=== PATIENT | female | born 1985 | race American Indian/Alaskan Native ===

== ENCOUNTER 2018-08-24 11:12 | Emergency (ER) | payer MEDICAID, OTHER ==
[~2018-08-24] VITALS: Ht 157.5 cm; Wt 88.9 kg
--- OUTSIDE RECORDS SUMMARY | ~2018-08-24 | XMS | Encounter Summary ---
Demographics + + + | Address | [address] | | | [place] [address] | + + + | Home Phone | | + + + | Preferred Language | Unknown | + + + | Marital Status | | + + + | Oriental Orthodox Affiliation | SPI | + + + | Race | White | + + + | Ethnic Group | Not or | + + + Author + + + | Author | [facility] | + + + | Organization | [facility] | + + + | Address | [...] Team Providers + +------+ + | Care Loss Control Consultant Name | Role | Phone | + +------+ + | Saniya Sapp | PCP | + | + +------+ + Encounter Details +--------+ + + + + | Date | Type | Department | Care Team | Description | +--------+ + + + + | 06/21/ | Pharmacy | [facility] | | | | 2017 | Visit | & Healing Pharmacy | | | | | | [address] | | | | | | [place], [place] | | | | | | [address] | | | | | | [phone] | | | +--------+ + + + + Social History + + + +--------+ + [...] on file | | + + + as of this encounter Plan of Treatment Not on fileas of this encounter Visit Diagnoses Not on filein this encounter"
--- OUTSIDE RECORDS SUMMARY | ~2018-08-24 | XMS | Encounter Summary ---
Demographics + + + | Address | [address] | | | [place] [address] | + + + | Home Phone | | + + + | Preferred Language | Unknown | + + + | Marital Status | | + + + | Amish Affiliation | SPI | + + + | Race | White | + + + | Ethnic Group | Not or | + + + Author + + + | Author | [facility] | + + + | Organization | [facility] | + + + | Address | Unknown | + + + | Phone | Unavailable | + + + Support + + +---------+ + | Name | Relationship | Address | Phone | + + +---------+ + | Keesha oFx | ECON | Unknown | | + + +---------+ + | Gabo Olmedo | ECON | Unknown | | + + +---------+ + Care Team Providers + +------+ + | Care Client Integration Manager Name | Role | Phone | + +------+ + | Saniya Sapp | PCP | + | + +------+ + Reason for Visit Other (Routine) + +--------+ + + + [...] | | | | | | CH[facility] [place] | | | | | | | [facility] | | | | | | | and Healing, | | | | | | | Floor | | | | | | | [place], [place] | | | | | | | [address] | | | | | | | Phone: | | | | | | | [phone] | | | | | | | Fax: | | | | | | | [phone] | + +--------+ + + + + Encounter Details +--------+ + + + + | Date | Type | Department | Care Team | Description | +--------+ + + + + | 05/28/ | Telephone-S | [place] | [facility] | | | 2018 | cheduled | Fertility | [address] | | | | | Consultants at [facility] | [place] [address] | | | | | [address] | | | | | | Mailcode: CH10F | | | | | | [facility] | | | | | | and Healing, | | | | | | Floor [facility] [place] | | | | | | [address] | | | | | | [phone] | | | +--------+ + + + [...] section. | + +--------+ + + + in this encounter Results LAB REPORTS (05/28/2018) + + + | Narrative | Performed At | + + + | | | + + + in this encounter Visit Diagnoses Not on filein this encounter"
--- OUTSIDE RECORDS SUMMARY | ~2018-08-24 | XMS | Encounter Summary ---
Demographics + + + | Address | [address] | | | [place] [address] | + + + | Home Phone | | + + + | Preferred Language | Unknown | + + + | Marital Status | | + + + | Caodaism Affiliation | SPI | + + + | Race | White | + + + | Ethnic Group | Not or | + + + Author + + + | Author | [facility] | + + + | Organization | [facility] | + + + | Address [...] Team Providers + +------+ + | Care Shampooer Name | Role | Phone | + +------+ + | Saniya Sapp | PCP | | + +------+ + Encounter Details +--------+ + + + + | Date | Type | Department | Care Team | Description | +--------+ + + + + | 08/01/ | MyCcodyt | [place] | Fariba Wilson MD | RE: Maternal DNA | | 2018 | Encounter | Fertility | [address] | proof | | | | Consultants at [facility] | Julee Reza [place], | | | | | [address] | [place] [address] | | | | | Mailcode: CH10F | [phone] | | | | | [facility] | | | | | | and | | | | | | Floor [place], [place] | | | | | | [address] | | | | | | [phone] | | | +--------+ + + + [...]
--- OUTSIDE RECORDS SUMMARY | ~2018-08-24 | XMS | Encounter Summary ---
Demographics + + + | Address | [address] | | | [place] [address] | + + + | Home Phone | | + + + | Preferred Language | Unknown | + + + | Marital Status | | + + + | Yarsani Affiliation | SPI | + + + | Race | White | + + + | Ethnic Group | Not or | + + + Author + + + | Author | [facility] | + + + | Organization | [facility] | + + + | Address [...] Team Providers + +------+ + | Care Promotions Manager Name | Role | Phone | + +------+ + | Saniya Sapp | PCP | | + +------+ + Reason for Visit + + + | Reason | Comments | + + + | Telephone follow-up | | + + + Encounter Details +--------+ + + + + | Date | Type | Department | Care Team | Description | +--------+ + + + + | 05/31/ | Telephone | [place] | Fariba Wilson MD | Telephone follow-up | | 2018 | | Fertility | [address] | | | | | Consultants at [facility] | Julee Reza [place], | | | | | [address] | [place] [address] | | | | | Mailcode: 10 | [phone] | | | | | [facility] | | | | | | and | | | | | | [place], [place] | | | | | | [address] | | | | | | [phone] | | | +--------+ + + + [...] + in this encounter Results LAB REPORTS (05/31/2018) + + + | Narrative | Performed At | + + + | | | + + + HCG BETA QUANT, PLASMA (05/31/2018) + +-------+ + + | Component | [...] | | | + +---------+ + + in this encounter Visit Diagnoses + + | Diagnosis | + + | Flowsheet | + + | Encounter for assisted reproductive fertility procedure cycle | + +"
--- OUTSIDE RECORDS SUMMARY | ~2018-08-24 | XMS | Encounter Summary ---
Demographics + + + | Address | [address] | | | [place] [address] | + + + | Home Phone | | + + + | Preferred Language | Unknown | + + + | Marital Status | | + + + | Jainism Affiliation | SPI | + + + | Race | White | + + + | Ethnic Group | Not or | + + + Author + + + | Author | [facility] | + + + | Organization | [facility] | + + + | Address [...] Team Providers + +------+ + | Care Incident Commander Name | Role | Phone | + +------+ + | Saniya Sapp | PCP | + | + +------+ + Encounter Details +--------+ + + + + | Date | Type | Department | Care Team | Description | +--------+ + + + + | 06/29/ | Pharmacy | [facility] | | | | 2017 | Visit | & Healing Pharmacy | | | | | | [address] | | | | | | [place], [place] | | | | | | [address] | | | | | | [phone] | | | +--------+ + + + [...]
--- OUTSIDE RECORDS SUMMARY | ~2018-08-24 | XMS | Encounter Summary ---
Demographics + + + | Address | [address] | | | [place] [address] | + + + | Home Phone | | + + + | Preferred Language | Unknown | + + + | Marital Status | | + + + | Adventist Affiliation | SPI | + + + | Race | White | + + + | Ethnic Group | Not or | + + + Author + + + | Author | [facility] | + + + | Organization | [facility] | + + + | [...] Team Providers + +------+ + | Care Tire Wrapper Name | Role | Phone | + +------+ + | Saniya Sapp | PCP | + | + +------+ + Encounter Details +--------+ + + + + | Date | Type | Department | Care Team | Description | +--------+ + + + + | 06/18/ | Pharmacy | [facility] | | | | 2017 | Visit | & Healing Pharmacy | | | | | | [address] | | | | | | [place], [place] | | | | | | [address] | | | | | | [phone] | | | +--------+ + + + [...]
--- OUTSIDE RECORDS SUMMARY | ~2018-08-24 | XMS | Encounter Summary ---
Demographics + + + | Address | [address] | | | [place] [address] | + + + | Home Phone | | + + + | Preferred Language | Unknown | + + + | Marital Status | | + + + | Orthodoxy Affiliation | SPI | + + + | Race | White | + + + | Ethnic Group | Not or | + + + Author + + + | Author | [facility] | + + + | Organization | [facility] | + + + | Address [...] Team Providers + +------+ + | Care Community Coordinator For High School Name | Role | Phone | + +------+ + | Saniya Sapp | PCP | + | + +------+ + Encounter Details +--------+ + + + + | Date | Type | Department | Care Team | Description | +--------+ + + + + | 06/15/ | Pharmacy | [facility] | | | | 2017 | Visit | & Healing Pharmacy | | | | | | [address] | | | | | | [place], [place] | | | | | | [address] | | | | | | [phone] | | | +--------+ + + + [...]
--- OUTSIDE RECORDS SUMMARY | ~2018-08-24 | XMS | Clinical Summary ---
Demographics + + + | Address | [address] | | | [place] [address] | + + + | Home Phone | | + + + | Preferred Language | Unknown | + + + | Marital Status | | + + + | Hinduism Affiliation | SPI | + + + | Race | White | + + + | Ethnic Group | Not or | + + + Author + + + | Author | [facility] | + + + | Organization | [facility] | + + + | [...] Team Providers + +------+ + | Care Online Marketing Analyst Name | Role | Phone | + +------+ + | Saniya SappP | PP | | + +------+ + Source Comments RAEANN is fully live on both [facility] Ambulatory and [facility] InPatient.[facility] Allergies + + + + + [...] | | original. FLOW Renan Olmedo / [id number] | | Recurrent Loss Bloods Drawn Tubal [...] (Est | | Gestational Age): Date: Results: WELCOME HOSTESS | | Physician: Doctor letter dictated on: [...] | |Results: | | | | | |WELCOME HOSTESS Physician: | |Doctor letter dictated on: by: | | | |MEDICATION PLAN: | | | + + + + + | IVF screening checklist | 09/01/2016 | + + + + + | Overview: Formatting of this note may be different from the | | original.Pre - IVF Screening ChecklistName: Farrahanisha Fox | | [facility] INITIAL CONSULT DATE COMMENT/RESULT IVF | | [...] MALE: Ruben Olmedo "Gabo" [birth year] | | [id number] DATE COMMENTS/RESULT HIV Ab Screen 08/23/16 neg [...] Health consult needed if donor sperm/ 3rd republican, | | | | Reproductive Psychologist | | visit.-Mammogram for advance maternal age > 50 (controversial, | | offer between ages 40-50, [id number]). | |Hep C Surface Antibody 08/23/16 neg [...] Health consult needed if donor sperm/ 3rd republican, Reproductive Psychologist vi sit. | |-Mammogram for [...] | 06/21/ | Procedure | | Deven Deiwtt MD | Obstetric US Scan | | [...] | +--------+ + + + + | 05/24/ | Pharmacy | | | | | [...] | + + + + + | INFLUENZA VACCINE | | 12/27/2017, 10/13/2014, | | | (FLU SHOT) | 8 | 03/13/2014, Additional history | [...] | + +--------+ + + + | DC TRANSFER OF | Routin | 06/10/2018 | [...] + + from Last 3 Months Results [facility] OB ULTRASOUND (06/29/2018 7:03 AM)Only the most recent of 3 results within the time pe maria alejandra is included. + + + | Narrative [...] | | | + +--------+ +--------+-------+---------+ | PRODUCT MANAGER FIN[employer]CIAL [employer] MEDICAID | PRODUCT [employer]GER [employer]CIAL [employer] | xxxxxxxx | Medica | | | [...] | | | + +--------+ +--------+-------+---------+ | [facility] | | xxxxxxxxx | Agency | | | [...] | Self | [birth year] | Home: | [address] | | | al/Fam | | 1984 | [address] | [place] [address] | | | melvina | | | [address] | | + +--------+ +--------+ + + | FARRAH OLMEDO | Agency | Self | [birth year] | Home: | [address] | | | | | 1984 | +- | [place] [address] | | | | | | [address] | | + +--------+ +--------+ + + | FARRAH OLMEDO | [employer] | Self | [birth year] | Home: | [address] | | | Billin | | 1984 | [address] | [place] [address] | | | g Use | | | [address] | | | | Only | | | | | + +--------+ +--------+ + +
--- OUTSIDE RECORDS SUMMARY | ~2018-08-24 | XMS | Encounter Summary ---
Demographics + + + | Address | [address] | | | [place] [address] | + + + | Home Phone | | + + + | Preferred Language | Unknown | + + + | Marital Status | | + + + | Baptist Affiliation | SPI | + + + | Race | White | + + + | Ethnic Group | Not or | + + + Author + + + | Author | [facility] | + + + | Organization | [facility] | + + + | Address | [...] Team Providers + +------+ + | Care Carpentry Instructor Name | Role | Phone | + [...] | | | | | Consultants at [facility] | [address] [place], | | | | | [address] | [place] [address] | | | | | Mailcode: CH10 | [phone] | | | | | [facility] | | | | | | and [place], | | | | | | [place], [place] | | | | | | [address] | | | | | | [phone] | | | +--------+ + + + [...]
--- OUTSIDE RECORDS SUMMARY | ~2018-08-24 | XMS | Encounter Summary ---
Demographics + + + | Address | [address] | | | [place] [address] | + + + | Home Phone | | + + + | Preferred Language | Unknown | + + + | Marital Status | | + + + | Alevism Affiliation | SPI | + + + | Race | White | + + + | Ethnic Group | Not or | + + + Author + + + | Author | [facility] | + + + | Organization | [facility] | + + + | Address [...] Providers + +------+ + | Care Tire Repairer Name | Role | Phone | + +------+ + | Saniya Sapp | PCP | + | + +------+ + Encounter Details +--------+ + + + + | Date | Type | Department | Care Team | Description | +--------+ + + + + | 06/29/ | Hospital | Diagnostic Imaging | Fariba Wilson MD | | | 2018 | Encounter | Services [address] | | | | | [facility] | [facility], | | | | | [place], [place] | [place] [address] | | | | | [address] | [phone] | | | | | | | | +--------+ + [...] + + + as of this encounter Medications at Time of Discharge + + + +---------+ + + | Medication | Sig. | Disp. | Refills | Start | End Date | | | | | | Date | | + + + +---------+ + + | buPROPion XL 150 | Take 150 mg by mouth | | | | | | mg oral tablet | once daily in the | | | | | | extended release 24 | evening. | | | | | | hr | | | | | | + + + +---------+ + + | | Call with mens day | 1 | 1 | 04/09/20 | | | desogestrel-ethinyl | one. Take active | Package | | 18 | | | estradiol 0.15-0.03 | pills only starting | | | | | | mg oral tablet | on menses day one. | | | | | + + + +---------+ + + | diazePAM (VALIUM) | Take one tablet one | 1 | 0 | 04/17/20 | | | 10 mg oral | hour prior to | tablet | | 18 | | | tabletIndications: | procedure. | | | | | | anxiety | Indications: anxiety | | | | | + + + +---------+ + + | docusate sodium | Take 200 mg by mouth | | | | | | (DOK) 100 mg oral | once daily at | | | | | | capsule | bedtime. | | | | | + + + +---------+ + + | doxycycline | Take 1 tablet by | 14 | 0 | 04/17/20 | | | hyclate 100 mg oral | mouth every twelve | tablet | | 18 | | | tablet | hours. (Pharmacist | | | | | | | to substitute salt | | | | | | | form as needed). | | | | | | | Take for a total of | | | | | | | 7 days. | | | | | + + + +---------+ + + | folic acid 800 mcg | Take 800 mcg by | | | | | | oral tablet | mouth once daily in | | | | | | | the evening. | | | | | + + + +---------+ + + | ibuprofen 600 mg | Take 1 tablet by | 60 | 2 | 04/11/20 | | | oral tablet | mouth every six | tablet | | 18 | | | | hours as needed. | | | | | + + + +---------+ + + | Needle (Disp) 22 G | Use to inject | 20 each | PRN | 05/23/20 | | | 22 gauge x 1 11/28" | progesterone. | | | 18 | | | needle | | | | | | + + + +---------+ + + | pantoprazole 40 mg | Take 40 mg by mouth | | | | | | oral tablet,delayed | once daily in the | | | | | | release (DR/EC) | evening. | | | | | + + + +---------+ + + | progesterone 50 | Inject 2 mL into the | 40 mL | PRN | 06/15/20 | | | mg/mL intramuscular | muscle (IM) once | | | 18 | | | oilIndications: | daily. Indications: | | | | | | | | | | | | + + + +---------+ + + | Syringe with | Use to draw up | 20 | PRN | 05/23/20 | | | Needle (Disp) 3 mL | progesterone. | Syringe | | 18 | | | 18 x 1 11/28" syringe | | | | | | + + + +---------+ + + | venlafaxine XR 150 | Take 150 mg by mouth | | | | | | mg oral | once daily in the | | | | | | capsule,extended | evening. | | | | | | release 24hr | | | | | | + + + +---------+ + + as of this encounter Plan [...] +--------+ + + + in this encounter Visit Diagnoses Not on filein this encounter
--- OUTSIDE RECORDS SUMMARY | ~2018-08-24 | XMS | Encounter Summary ---
Demographics + + + | Address | [address] | | | [place] [address] | + + + | Home Phone | | + + + | Preferred Language | Unknown | + + + | Marital Status | | + + + | Mu-Ism Affiliation | SPI | + + + | Race | White | + + + | Ethnic Group | Not or | + + + Author + + + | Author | [facility] | + + + | Organization | [facility] | + + + | Address [...] Team Providers + +------+ + | Care Baler Name | Role | Phone | + [...] | | | | | | | [place], [place] | | | | | | | [address] | | | | | | | Phone: | | | | | | | [phone] | | | | | | | Fax: | | | | | | | [phone] | + +--------+ + + + + Encounter Details +--------+ + + + + | Date | Type | Department | Care Team | Description | +--------+ + + + + | 06/29/ | Procedure | [facility] | Fariba Wilson MD | Obstetric US Scan | | 2018 | | Fertility | [address] | | | | | Consultants at [facility] | [address] [place], | | | | | [address] | [place] [address] | | | | | Mailcode: CH10F | [phone] | | | | | [facility] | | | | | | and Healing, | | | | | | [place], [place] | | | | | | [address] | | | | | | [phone] | | | +--------+ + + + [...] age: 8w3d Yolk Sac: present 0.41 cm [place] Rump Length = 2.12 cm, gestational age: 8w5d Heart Beat: 172 bpm twin B: Approach: transvaginal Uterus: normal Gestational Sac: present Yolk Sac: present [place] Rump Length = 2.19 cm, gestational age: [...] Transition to OB care - referred to [facility]. I, Mariely Betancourt, am functioning [...]
--- OUTSIDE RECORDS SUMMARY | ~2018-08-24 | XMS | Encounter Summary ---
Demographics + + + | Address | [address] | | | [place] [address] | + + + | Home Phone | | + + + | Preferred Language | Unknown | + + + | Marital Status | | + + + | Spiritism Affiliation | SPI | + + + [...] Team Providers + +------+ + | Care Hydrographic Engineer Name | Role | Phone | + +------+ + | Saniya Sapp | PCP | + | + +------+ + Encounter Details +--------+ + + + + | Date | Type | Department | Care Team | Description | +--------+ + + + + | 06/20/ | Pharmacy | [facility] | | | | 2017 | Visit | & Healing Pharmacy | | | | | | [address] | | | | | | [place], [place] | | | | | | [address] | | | | | | [phone] | | | +--------+ + + + [...]
--- OUTSIDE RECORDS SUMMARY | ~2018-08-24 | XMS | Encounter Summary ---
Demographics + + + | Address | [address] | | | [place] [address] | + + + | Home Phone [...] Author + + + | Author | [facility] | + + + | Organization | [facility] | + + + | [...] Team Providers + +------+ + | Care Sales Representative Business Courses Name | Role | Phone | + +------+ + | Saniya Sapp | PCP | + | + +------+ + Encounter Details +--------+ + + + + | Date | Type | Department | Care Team | Description | +--------+ + + + + | 07/16/ | Documentati | [place] | Fariba Wilson MD | | | 2018 | on | Fertility | [address] | | | | | Consultants at [facility] | [address] [place], | | | | | [address] | [place] [address] | | | | | Mailcode: CH10 | [phone] | | | | | [facility] | | | | | | and [address], | | | | | | Floor [place], [place] | | | | | | [address] | | | | | | [phone] | | | +--------+ + + + [...]
--- OUTSIDE RECORDS SUMMARY | ~2018-08-24 | XMS | Encounter Summary ---
Demographics + + + | Address | [address] | | | [place] [address] | + + + | Home Phone | | + + + | Preferred Language | Unknown | + + + | Marital Status | | + + + | Episcopal Affiliation | SPI | + + + [...] Team Providers + +------+ + | Care Disk Recoater Name | Role | Phone | + +------+ + | Saniya Sapp | PCP | + | + +------+ + Encounter Details +--------+ + + + + | Date | Type | Department | Care Team | Description | +--------+ + + + + | 07/20/ | Pharmacy | [facility] | | | | 2017 | Visit | & Healing Pharmacy | | | | | | [address] | | | | | | [place], [place] | | | | | | [address] | | | | | | [phone] | | | +--------+ + + + [...]
--- OUTSIDE RECORDS SUMMARY | ~2018-08-24 | XMS | Encounter Summary ---
Demographics + + + | Address | [address] | | | [place] [address] | + + + | Home Phone | | + + + | Preferred Language | Unknown | + + + | Marital Status | | + + + | Rastafari Affiliation | SPI | + + + | Race | White | + + + | Ethnic Group | Not or | + + + Author + + + | Author | [facility] | + + + | Organization | [facility] | + + + | [...] Team Providers + +------+ + | Care Shop Tailor Apprentice Name | Role | Phone | + +------+ + | Saniya Sapp | PCP | + | + +------+ + Encounter Details +--------+ + + + + | Date | Type | Department | Care Team | Description | +--------+ + + + + | 07/31/ | Pharmacy | [facility] | | | | 2017 | Visit | & Healing Pharmacy | | | | | | [address] | | | | | | [place], [place] | | | | | | [address] | | | | | | [phone] | | | +--------+ + + + [...]
--- OUTSIDE RECORDS SUMMARY | ~2018-08-24 | XMS | Encounter Summary ---
Demographics + + + | Address | [address] | | | [place] [address] | + + + | Home Phone | | + + + | Preferred Language | Unknown | + + + | Marital Status | | + + + | Scientologist Affiliation | SPI | + + + | Race | White | + + + | Ethnic Group | Not or | + + + Author + + + | Author | [facility] | + + + | Organization | [facility] | + + + | Address [...] Team Providers + +------+ + | Care Lead Python Developer Name | Role | Phone | + +------+ + | Saniya Sapp | PCP | + | + +------+ + Encounter Details +--------+ + + + + | Date | Type | Department | Care Team | Description | +--------+ + + + + | 06/22/ | Pharmacy | [facility] | | | | 2017 | Visit | & [facility] | | | | | | [address] | | | | | | [place], [place] | | | | | | [address] | | | | | | [phone] | | | +--------+ + + + [...]
--- OUTSIDE RECORDS SUMMARY | ~2018-08-24 | XMS | Encounter Summary ---
Demographics + + + | Address | [address] | | | [place] [address] | + + + | Home Phone | | + + + | Preferred Language | Unknown | + + + | Marital Status | | + + + | Uatsdin Affiliation | SPI | + + + | Race | White | + + + | Ethnic Group | Not or | + + + Author + + + | Author | [facility] | + + + | Organization | [facility] | + + + | Address [...] Team Providers + +------+ + | Care Stockroom Coordinator Name | Role | Phone | + [...] | Encounter | Services [address] | [address] | | | | | [facility] | [place], [place] | | | | | Road [place], [place] | [address] | | | | | [address] | [phone] | | | | | | | [...]
--- OUTSIDE RECORDS SUMMARY | ~2018-08-24 | XMS | Encounter Summary ---
Demographics + + + | Address | [address] | | | [place] [address] | + + + | Home Phone [...] Team Providers + +------+ + | Care Outreach Educator Name | Role | Phone | + +------+ + | Saniya Sapp | PCP | + | + +------+ + Encounter Details +--------+ + + + + | Date | Type | Department | Care Team | Description | +--------+ + + + + | 05/24/ | Pharmacy | [facility] | | | | 2017 | Visit | & [facility] | | | | | | [address] | | | | | | [place], [place] | | | | | | [address] | | | | | | [phone] | | | +--------+ + + + [...]
--- OUTSIDE RECORDS SUMMARY | ~2018-08-24 | XMS | Encounter Summary ---
Demographics + + + | Address | [address] | | | [place] [address] | + + + | Home Phone | | + + + | Preferred Language | Unknown | + + + | Marital Status | | + + + | Spiritism Affiliation | SPI | + + + | Race | White | + + + | Ethnic Group | Not or | + + + Author + + + | Author | [facility] | + + + | Organization | [facility] | + + + | Address [...] Team Providers + +------+ + | Care Reflow Operator Name | Role | Phone | + +------+ + | Saniya Sapp | PCP | + | + +------+ + Encounter Details +--------+ + + + + | Date | Type | Department | Care Team | Description | +--------+ + + + + | 05/29/ | Telephone | [place] | Fariba Wilson MD | | | 2018 | | Fertility | [address] | | | | | Consultants at [facility] | Julee Reza [place], | | | | | [address] | [place] [address] | | | | | Mailcode: CH10F | [phone] | | | | | [facility] | | | | | | and , | | | | | | Floor [place], [place] | | | | | | [address] | | | | | | [phone] | | | +--------+ + + + [...]
--- OUTSIDE RECORDS SUMMARY | ~2018-08-24 | XMS | Encounter Summary ---
Demographics + + + | Address | [address] | | | [place] [address] | + + + | Home Phone | | + + + | Preferred Language | Unknown | + + + | Marital Status | | + + + | Pentecostalism Affiliation | SPI | + + + | Race | White | + + + | Ethnic Group | Not or | + + + Author + + + | Author | [facility] | + + + | Organization | [facility] | + + + | Address | [...] Team Providers + +------+ + | Care Education Faculty Member Name | Role | Phone | + +------+ + | Saniya Sapp | PCP | + | + +------+ + Encounter Details +--------+ + + + + | Date | Type | Department | Care Team | Description | +--------+ + + + + | 06/15/ | Telephone | [place] | Fariba Wilson MD | | | 2018 | | Fertility | [address] | | | | | Consultants at [facility] | Julee Agg[place], | | | | | [address] | [place] [address] | | | | | Mailcode: CH10F | [phone] | | | | | [facility] | | | | | | and , | | | | | | Floor [place], [place] | | | | | | [address] | | | | | | [phone] | | | +--------+ + + + [...]
--- OUTSIDE RECORDS SUMMARY | ~2018-08-24 | XMS | Encounter Summary ---
Demographics + + + | Address | [address] | | | [place] [address] | + + + | Home Phone [...] + + + | Author | [facility] | + + + | Organization | [facility] | + + + | [...] Team Providers + +------+ + | Care Dough Maker Name | Role | Phone | + +------+ + | Saniya Sapp | PCP | | + +------+ + Encounter Details +--------+ + + + + | Date | Type | Department | Care Team | Description | +--------+ + + + + | 06/04/ | [place] | [place] | Dangelo Orozco RN | RE: IM injection | | 2018 | Encounter | Fertility | [address] | site | | | | Consultants at [facility] | Julee Reza [place], | | | | | [address] | [place] [address] | | | | | Mailcode: CH10F | | | | | | [facility] | | | | | | and Healing, | | | | | | Floor [place], [place] | | | | | | [address] | | | | | | [phone] | | | +--------+ + + + [...]
--- OUTSIDE RECORDS SUMMARY | ~2018-08-24 | XMS | Encounter Summary ---
Demographics + + + | Address | [address] | | | [place] [address] | + + + | Home Phone | | + + + | Preferred Language | Unknown | + + + | Marital Status | | + + + | Jehovah'S Witness Affiliation | SPI | + + + [...] Team Providers + +------+ + | Care Hose Tender Name | Role | Phone | + +------+ + | Saniya SappP | PCP | | + +------+ + Encounter Details +--------+ + + + + | Date | Type | Department | Care Team | Description | +--------+ + + + + | 06/17/ | MyChart | [place] | Fariba Wilson MD | RE:Progesterone and | | 2018 | Encounter | Fertility | [address] | [place] | | | | Consultants at [facility] | Julee Reza [place], | | | | | [address] | [place] [address] | | | | | Mailcode: CH10F | [phone] | | | | | [facility] | | | | | | and [place], | | | | | | Floor [place], [place] | | | | | | [address] | | | | | | [phone] | | | +--------+ + + + [...]
--- OUTSIDE RECORDS SUMMARY | ~2018-08-24 | XMS | Encounter Summary ---
Demographics + + + | Address | [address] | | | [place] [address] | + + + | Home Phone [...] Team Providers + +------+ + | Care Ruby On Rails Consultant Name | Role | Phone | + +------+ + | Saniya Sapp | PCP | | + +------+ + Encounter Details +--------+ + + + + | Date | Type | Department | Care Team | Description | +--------+ + + + + | 06/07/ | Pharmacy | [facility] | | | | 2018 | Visit | & [facility] | | | | | | [address] | | | | | | [place], [place] | | | | | | [address] | | | | | | [phone] | | | +--------+ + + + [...]
--- OUTSIDE RECORDS SUMMARY | ~2018-08-24 | XMS | Encounter Summary ---
Demographics + + + | Address | [address] | | | [place] [address] | + + + | Home Phone [...] + + + | Author | [facility] | + + + | Organization | [facility] | + + + | Address [...] Team Providers + +------+ + | Care Equalizer Operator Name | Role | Phone | + +------+ + | Saniya Sapp | PCP | | + +------+ + Encounter Details +--------+ + + + + | Date | Type | Department | Care Team | Description | +--------+ + + + + | 07/18/ | Veronica | [place] | Fariba Wilson MD | RE: White water | | 2018 | Encounter | Fertility | [address] | tracey | | | | Consultants at [facility] | Julee Reza [place], | | | | | [address] | [place] [address] | | | | | Mailcode: CH10F | [phone] | | | | | [facility] | | | | | | and , | | | | | | Floor [place], [place] | | | | | | [address] | | | | | | [phone] | | | +--------+ + + + [...]
--- OUTSIDE RECORDS SUMMARY | ~2018-08-24 | XMS | Encounter Summary ---
Demographics + + + | Address | [address] | | | [place] [address] | + + + | Home Phone [...] Team Providers + +------+ + | Care Human Relations Teacher Name | Role | Phone | + [...] + + | 05/28/ | Telephone | [place] | Fariba Wilson MD | Telephone follow-up | | 2018 | | Fertility | [address] | | | | | [facility] at [facility] | Julee Reza [place], | | | | | [address] | [place] [address] | | | | | Mailcode: 10 | [phone] | | | | | [facility] | | | | | | and | | | | | | [place], [place] | | | | | | [address] | | | | | | [phone] | | | +--------+ + + + [...]
--- OUTSIDE RECORDS SUMMARY | ~2018-08-24 | XMS | Encounter Summary ---
Demographics + + + | Address | [address] | | | [place] [address] | + + + | Home Phone | | + + + | Preferred Language | Unknown | + + + | Marital Status | | + + + | Rastafari Affiliation | SPI | + + + | Race | White | + + + | Ethnic Group | Not or | + + + Author + + + | Author | [facility] | + + + | Organization | [facility] | + + + | Address [...] Team Providers + +------+ + | Care Resilient Tile Installer Name | Role | Phone | [...] | | | | | | | [place], [place] | | | | | | | [address] | | | | | | | Phone: | | | | | | | [phone] | | | | | | | Fax: | | | | | | | [phone] | + +--------+ + + + + Encounter Details +--------+ + + + + | Date | Type | Department | Care Team | Description | +--------+ + + + + | 06/14/ | Procedure | [facility] | Yocasta Jonas MD | Obstetric US Scan | | 2018 | | Fertility | [address] | | | | | Consultants at [facility] | [facility] [place] | | | | | [address] | [address] | | | | | Mailcode: CH10F | [phone] | | | | | [facility] | | | | | | and , | | | | | | [place], [place] | | | | | | [address] | | | | | | [phone] | | | +--------+ + + + [...] present 1.57 6w3d Yolk Sac: present 0.38 [place] Rump Length = 0.65, gestational age: 6w4d Heart Beat: 116bpm Twin B Gestational Sac: present 1.76 6w5d Yolk Sac: present 0.47 [place] Rump Length = 0.55, gestational age: 6w2d Heart Beat: 119bpm Left ovary/adnexa: normal Right ovary/adnexa: normal Interpretation: Viable TIUP. Size c/w dates. +FHR x 2. Adnexae WNL bilat. Plan: Continue E+P as per protocol. Rpt OB scan in 1 wk. 2nd scan recommended on Formal U/S at: Machine Hand: I personally performed all components of this [...] + + + in this encounter Results [facility] (06/14/2018 7:36 AM) + + [...]
--- OUTSIDE RECORDS SUMMARY | ~2018-08-24 | XMS | Encounter Summary ---
Demographics + + + | Address | [address] | | | [place] [address] | + + + | Home Phone [...] Team Providers + +------+ + | Care Dietitian Name | Role | Phone | + +------+ + | Saniya Sapp | PCP | + | + +------+ + Encounter Details +--------+ + + + + | Date | Type | Department | Care Team | Description | +--------+ + + + + | 06/21/ | Telephone | [place] | Fariba Wilson MD | | | 2018 | | Fertility | [address] | | | | | Consultants at [facility] | Julee Aggarwal, | | | | | [address] | [place] [address] | | | | | Mailcode: CH10F | [phone] | | | | | [facility] | | | | | | and , | | | | | | Floor [place], [place] | | | | | | [address] | | | | | | [phone] | | | +--------+ + + + [...]
--- OUTSIDE RECORDS SUMMARY | ~2018-08-24 | XMS | Encounter Summary ---
Demographics + + + | Address | [address] | | | [place] [address] | + + + | Home Phone [...] Author | [facility] | + + + | Organization | [facility] | + + + | Address | [...] Providers + +------+ + | Care Supervisor Asbestos Textile Name | Role | Phone | + [...] | Encounter | Services [address] | [address] | | | | | [facility] | [place], [place] | | | | | Road [place], [place] | [address] | | | | | [address] | [phone] | | | | | | | [...]
--- OUTSIDE RECORDS SUMMARY | ~2018-08-24 | XMS | Encounter Summary ---
Demographics + + + | Address | [address] | | | [place] [address] | + + + | Home Phone | | + + + | Preferred Language | Unknown | + + + | Marital Status | | + + + | Sikhism Affiliation | SPI | + + + [...] Team Providers + +------+ + | Care Slot Machine Mechanic Name | Role | Phone | + [...] | | | | | | | [place], [place] | | | | | | | [address] | | | | | | | Phone: | | | | | | | [phone] | | | | | | | Fax: | | | | | | | [phone] | + +--------+ + + + + Encounter Details +--------+ + + + + | Date | Type | Department | Care Team | Description | +--------+ + + + + | 06/21/ | Procedure | University | Deven Dewitt MD | Obstetric US Scan | | 2018 | | Fertility | [address] | | | | | Consultants at [facility] | [facility] [place] | | | | | [address] | [address] | | | | | Mailcode: CH10F | [phone] | | | | | [facility] | | | | | | and , | | | | | | Floor [place], [place] | | | | | | [address] | | | | | | [phone] | | | +--------+ + + + [...] present 2.6cm 7w4d Yolk Sac: present 4.9mm [place] Rump Length = 12mm, gestational age: Heart Beat: 156 Baby B Gestational Sac: present 2.6cm 7w5d Yolk Sac: present 5.4mm [place] Rump Length = 13mm, gestational age: Heart [...] | + +--------+ + + + | [facility] | Routin | 06/21/2018 | | Results for this | | | e | 7:17 AM | examination or test, | procedure are in the | | | | PDT | | results section. | | | | | unconfirmed | | + +--------+ + + + in this encounter Results [facility] (06/21/2018 7:17 AM) + + [...]
--- OUTSIDE RECORDS SUMMARY | ~2018-08-24 | XMS | Encounter Summary ---
Demographics + + + | Address | [address] | | | [place] [address] | + + + | Home Phone [...] + + + | Author | [facility] | + + + | Organization | [facility] | + + + | [...] Team Providers + +------+ + | Care Residential Glazier Name | Role | Phone | + [...] Pharmacy [address] | [facility] [address] | (Progesterone in | | | | [address] | [place], [place] | Oil) | | | | [place], [place] | [address] | | | | | [address] | [phone] | | | | | [phone] | | | +--------+ + + + [...]
--- OUTSIDE RECORDS SUMMARY | ~2018-08-24 | XMS | Encounter Summary ---
Demographics + + + | Address | [address] | | | [place] [address] | + + + | Home Phone | | + + + | Preferred Language | Unknown | + + + | Marital Status | | + + + | Buddhism Affiliation | SPI | + + + | Race | White | + + + | Ethnic Group | Not or | + + + Author + + + | Author | [facility] | + + + | Organization | [facility] | + + + | Address [...] Team Providers + +------+ + | Care Electrician Aircraft Name | Role | Phone | + [...] [address] | | | | | [facility] | [address] | | | | | Physicians [place] | [place], [place] | | | | | [place], [place] | [address] | | | | | [address] | | | | | | [phone] | | | +--------+ + + + [...]
--- OUTSIDE RECORDS SUMMARY | 2018-08-24 11:34 | XMS ---
PreManage Notification: BOO GARRETT Security String Laster Events No recent Security Events currently on file CRITERIA MET - [facility] - 3 Facilities in 90 Days - [facility] - 2 Visits in 30 Days [facility] \T\ Gynecology 10/03/2016-Current PHONE: [phone] Yared [facility] Current PHONE: [phone] BARTOLO STOKES Primary Care Current PHONE: Unknown RICKEY FINNEGAN Primary Care [facility] PHONE: Unknown [facility] Primary Care 10/03/2016-Current PHONE: [phone] Ilda Vail Primary Care Current PHONE: [phone] Guicho has no Care Guidelines for this patient. EJohann VISIT COUNT (12 MO.) 1 [facility] 1 [facility]_ 1 Tish Sher 1 BRIGIDO Link TOTAL 4 NOTE: Visits indicate total known visits. ED/UCC VISIT TRACKING (12 MO.) 08/24/2018 11:14 [place] TYPE: Emergency COMPLAINT: - 16 WKS /VAGINAL BLEEDING 07/31/2018 23:26 Tish FERNANDEZ [place] TYPE: Emergency DIAGNOSES: - Other specified disorders of amniotic fluid and membranes, first trimester, not applicable or unspecified - Vaginal Bleeding - Threatened - Twin , unspecified number of placenta and unspecified number of amniotic sacs, first trimester - vaginal bleed 13 wks - Other antepartum hemorrhage, first trimester 07/28/2018 07:19 [facility] [place] . TYPE: Emergency DIAGNOSES: - Vaginal Bleeding - Abnormal uterine and vaginal bleeding, unspecified - Twin , unspecified number of placenta and unspecified number of amniotic sacs, second trimester - vaginal bleeding/13 weeks 07/15/2018 15:22 [facility]anya [facility] [place] TYPE: Emergency COMPLAINT: - MEDIC STATES BEE STING INPATIENT VISIT TRACKING (12 MO.) No inpatient visits to display in this time frame [id number]
[2018-08-24] MEDS ORDERED: WELLBUTRIN XL150 MG PO (11:44)
[2018-08-24] MEDS ORDERED: ASPIR-LOW81 MG PO (11:44)
[2018-08-24] MEDS ORDERED: IRON236 MG PO (11:44)
[2018-08-24] MEDS ORDERED: FOLIC ACID1 MG PO (11:45)
[2018-08-24] MEDS ORDERED: PROTONIX40 MG PO (11:45)
== END 2018-08-24 16:17 | disposition home or self-care (01) ==
LOC: ED 11:12
DX: O20.0 Threatened abortion (principal); O30.001 Twin pregnancy, unspecified number of placenta and unspecified number of amniotic sacs, first trimester; Z91.038 Other insect allergy status; Z88.0 Allergy status to penicillin; Z91.041 Radiographic dye allergy status; Z79.82 Long term (current) use of aspirin; Z79.899 Other long term (current) drug therapy; Z3A.16 16 weeks gestation of pregnancy
CPT/HCPCS: 36415; 76810; 76815; 81001; 84702; 85025; 86900; 86901; 96372; 99284; J2790

== ENCOUNTER 2018-08-28 18:36 | Emergency (ER) | payer MEDICAID, OTHER ==
[~2018-08-28] VITALS: Ht 157.5 cm; Wt 88.9 kg
--- OUTSIDE RECORDS SUMMARY | ~2018-08-28 | XMS | Clinical Summary ---
Demographics + + + | Address | [address] | | | [place] [address] | + + + | Home Phone | | + + + | Preferred Language | Unknown | + + + | Marital Status | | + + + | Faith Affiliation | SPI | + + + | Race | White | + + + | Ethnic Group | Not or | + + + Author + + + | Author | [facility] | + + + | Organization | [facility] | + + + | Address | Unknown | + + + | Phone | Unavailable | + + + Support + + +---------+ + | Name | Relationship | Address | Phone | + + +---------+ + | Keesha Fox | ECON | Unknown | | + + +---------+ + | Gabo Olmedo | ECON | Unknown | | + + +---------+ + Care Team Providers + +------+ + | Care Camp Cook Name | Role | Phone | + +------+ + | Saniya SappP | PP | | + +------+ + Source Comments RAEANN is fully live on both [facility] Ambulatory and [facility] InPatient.[facility] Allergies + + + + + + | Active Allergy | Reactions | Severity | Noted | Comments | | | | | Date | | + + + + + + | Latex | Rash | | 08/15/20 | | | | | | 16 | | + + + + + + | Penicillin | Hives, Rash | | 08/15/20 | | | | | | 16 | | + + + + + + Current Medications + + + +---------+------+------+-------+ | Prescription | Sig. | Disp. | Refills | Star | End | Statu | | | | | | t | Date | s | | | | | | Date | | | + + + +---------+------+------+-------+ | docusate sodium | Take 200 mg by mouth | | | | | Activ | | (DOK) 100 mg oral | once daily at | | | | | e | | capsule | bedtime. | | | | | | + + + +---------+------+------+-------+ | pantoprazole 40 mg | Take 40 mg by mouth | | | | | Activ | | oral tablet,delayed | once daily in the | | | | | e | | release (DR/EC) | evening. | | | | | | + + + +---------+------+------+-------+ | venlafaxine XR 150 | Take 150 mg by mouth | | | | | Activ | | mg oral | once daily in the | | | | | e | | capsule,extended | evening. | | | | | | | release 24hr | | | | | | | + + + +---------+------+------+-------+ | buPROPion XL 150 | Take 150 mg by mouth | | | | | Activ | | mg oral tablet | once daily in the | | | | | e | | extended release 24 | evening. | | | | | | | hr | | | | | | | + + + +---------+------+------+-------+ | folic acid 800 mcg | Take 800 mcg by | | | | | Activ | | oral tablet | mouth once daily in | | | | | e | | | the evening. | | | | | | + + + +---------+------+------+-------+ | | Call with menses day | 1 | 1 | 05/1 | | Activ | | desogestrel-ethinyl | one. Take active | Package | | 4/20 | | e | | estradiol 0.15-0.03 | pills only starting | | | 18 | | | | mg oral tablet | on menses day one. | | | | | | + + + +---------+------+------+-------+ | ibuprofen 600 mg | Take 1 tablet by | 60 | 2 | 05/1 | | Activ | | oral tablet | mouth every six | tablet | | 6/20 | | e | | | hours as needed. | | | 18 | | | + + + +---------+------+------+-------+ | doxycycline | Take 1 tablet by | 14 | 0 | 05/2 | | Activ | | hyclate 100 mg oral | mouth every twelve | tablet | | 2/20 | | e | | tablet | hours. (Pharmacist | | | 18 | | | | | to substitute salt | | | | | | | | form as needed). | | | | | | | | Take for a total of | | | | | | | | 7 days. | | | | | | + + + +---------+------+------+-------+ | diazePAM (VALIUM) | Take one tablet one | 1 | 0 | 05/2 | | Activ | | 10 mg oral | hour prior to | tablet | | 2/20 | | e | | tabletIndications: | procedure. | | | 18 | | | | anxiety | Indications: anxiety | | | | | | + + + +---------+------+------+-------+ | Syringe with | Use to draw up | 20 | PRN | 06/2 | | Activ | | Needle (Disp) 3 mL | progesterone. | Syringe | | 7/20 | | e | | 18 x 1 1/2" syringe | | | | 18 | | | + + + +---------+------+------+-------+ | Needle (Disp) 22 G | Use to inject | 20 each | PRN | 06/2 | | Activ | | 22 gauge x 1 1/2" | progesterone. | | | 7/20 | | e | | needle | | | | 18 | | | + + + +---------+------+------+-------+ | progesterone 50 | Inject 2 mL into the | 40 mL | PRN | 07/2 | | Activ | | mg/mL intramuscular | muscle (IM) once | | | 0/20 | | e | | oilIndications: | daily. Indications: | | | 18 | | | | | | | | | | | + + + +---------+------+------+-------+ Active Problems + + + | Problem | Noted Date | + + + | Flowsheet | 05/28/2018 | + + + + + | Overview: Formatting of this note may be different from the | | original. FLOW Renan Olmedo / [id number] | | Recurrent Loss Bloods Drawn Tubal Factor LMP: EDC: | | 02/03/19 IUI:Blood Type:O neg +LH Surge: ET Date: 05/18/18Day 5-6 | | BhCG LEVELS P4 LEVELS EGA (Est. Gest Age) DATES 310 mIU/ml 37.2 | | 4w1d 05/28/18 2070 mIU/ml 4w4d 05/31/18 mIU/ml mIU/ml | | mIU/ml ULTRASOUNDSEGA (Est Gestational Age): | | Date: Results: EGA (Est Gestational | | Age): Date: Results: EGA (Est | | Gestational Age): Date: Results: SPECIAL DAY CLASS TEACHER | | Physician: Doctor letter dictated on: by: MEDICATION | | PLAN: | |310 mIU/ml 37.2 4w1d 05/28/18 | |2070 mIU/ml 4w4d 05/31/18 | | mIU/ml | | mIU/ml | | mIU/ml | |ULTRASOUNDS | |EGA (Est Gestational Age): Date: | |Results: | | | |EGA (Est Gestational Age): Date: | |Results: | | | |EGA (Est Gestational Age): Date: | |Results: | | | | | |SPECIAL DAY CLASS TEACHER Physician: | |Doctor letter dictated on: by: | | | |MEDICATION PLAN: | | | + + + + + | IVF screening checklist | 09/01/2016 | + + + + + | Overview: Formatting of this note may be different from the | | original.Pre - IVF Screening ChecklistName: Farrahanisha Fox | | [facility] INITIAL CONSULT DATE COMMENT/RESULT IVF | | Consult 08/15/16 completed Financial Counselor 08/15/16 completed | | FEMALE: DATE COMMENTS/RESULT Day 3 FSH 10/28/17 4.9 E2 10/28/17 | | 25.5 AMH 10/18/17 2.07 ABO/Rh Antibody Screen 08/23/16 0 | | negative, NO AB SCREEN DONENew order placed 11/13/17 HIV Ab | | Screen 10/18/17 neg Hep B Surface Antigen 10/18/17 neg Hep C | | Surface Antibody 10/18/17 neg RPR 10/18/17 neg Rubella IgG (or | | date immunized) 02/18/16 4.03, immune Varicella 08/23/16 Immune | | Vitamin D 08/23/16 33.5 TSH 02/18/16 1.22 HgbA1c 02/18/16 5.7 Pap | | smear 11/03/17 wnl BAF 11/03/17 Basal Antral Follicles:Right | | ovary:29x25 , BAF count: 15Left ovary: 34x22 , BAF count: 12.5 | | dominant follicle, 14 total SIS/TT 11/03/17 Interpretation: nl | | SISTT Mid position HSG MALE: Ruben Olmedo "Gabo" [birth year] | | [id number] DATE COMMENTS/RESULT HIV Ab Screen 08/23/16 neg Hep B | | Surface Antigen 08/23/16 neg Hep C Surface Antibody 08/23/16 neg | | RPR 08/23/16 NR Semen Analysis Other Andrology:Back-up | | FreezeTESE Needs urology appt s/p vasectomy, Scheduled 12/05/17. | | TESE Scheduled for 12/22/17 GENETICS: DATE COMMENTS/RESULT Consult | | 11/06/17 Completed w/ Ladan [facility] 11/06/17 DECLINED | | Counsyl Screen 11/06/17 DECLINED; neg CF, SMA, and Braden disease | | results from 2008 Chromosome testing n/a ADDITIONAL SCREENING: | | DATE COMMENTS/RESULT Clearance Letter from Specialist Medical | | Release for Infectious Disease Other Misc Notes: -PMC consult | | needed if BMI >35, and this consult needs to be within 30 days | | of procedure.-MFM consult needed if patient needs medical | | clearance for , anticipating high-risk .-Mental | | Health consult needed if donor sperm/ 3rd alliance party, | | | | Reproductive Psychologist | | visit.-Mammogram for advance maternal age > 50 (controversial, | | offer between ages 40-50, [id number]). | |Hep C Surface Antibody 08/23/16 neg | |RPR 08/23/16 NR | |Semen Analysis | |Other Andrology: | |Back-up Freeze | |TESE Needs urology appt s/p vasectomy, | |Scheduled 12/05/17. TESE Scheduled for 12/22/17 | |GENETICS: DATE COMMENTS/RESULT | |Consult 11/06/17 Completed w/ Ladan | |PGS Genetics 11/06/17 DECLINED | |Counsyl Screen 11/06/17 DECLINED; neg CF, SMA, and Braden disease results from 2008 | |Chromosome testing n/a | |ADDITIONAL SCREENING: DATE COMMENTS/RESULT | |Clearance Letter from Specialist | |Medical Release for Infectious Disease | |Other | |Misc Notes: | |-PMC consult needed if BMI >35, and this consult needs to be within 30 days of procedure. | |-MFM consult needed if patient needs medical clearance for , anticipating high-ris k . | |-Mental Health consult needed if donor sperm/ 3rd alliance party, Reproductive Psychologist vi sit. | |-Mammogram for advance maternal age > 50 (controversial, offer between ages 40-50, case-by- case). | + + Encounters +--------+ + + + + | Date | Type | Specialty | Care Team | Description | +--------+ + + + + | 08/03/ | Telephone | | Ladan Rodríguez, | Follow-up encounter | | 2017 | | | ,CAITLIN | | +--------+ + + + + | 08/01/ | MyChart | | Fariba Wilson MD | RE: Maternal DNA | | 2017 | Encounter | | | proof | +--------+ + + + + | 08/01/ | Telephone | | Fariba Wilson MD | Bleeding | | 2017 | | | | | +--------+ + + + + | 07/31/ | Pharmacy | | | | | 2017 | Visit | | | | +--------+ + + + + | 07/20/ | Pharmacy | | | | | 2017 | Visit | | | | +--------+ + + + + | 07/18/ | MyChart | | Fariba Wilson MD | RE: White water | | 2017 | Encounter | | | rafting | +--------+ + + + + | 07/16/ | Documentati | | Fariba Wilson MD | | | 2017 | on | | | | +--------+ + + + + | 06/29/ | Procedure | | Fariba Wilson MD | Obstetric US Scan | | 2018 | | | | | +--------+ + + + + | 06/29/ | Hospital | | Fariba Wilson MD | | | 2018 | Encounter | | | | +--------+ + + + + | 06/29/ | Pharmacy | | | | | 2017 | Visit | | | | +--------+ + + + + | 06/22/ | Pharmacy | | | | | 2017 | Visit | | | | +--------+ + + + + | 06/21/ | Procedure | | Deven Dewitt MD | Obstetric US Scan | | 2017 | | | | | +--------+ + + + + | 06/21/ | Hospital | | Deven Dewitt MD | | | 2017 | Encounter | | | | +--------+ + + + + | 06/21/ | Telephone | | Fariba Wilson MD | | | 2017 | | | | | +--------+ + + + + | 06/21/ | Pharmacy | | | | | 2017 | Visit | | | | +--------+ + + + + | 06/20/ | Pharmacy | | | | | 2017 | Visit | | | | +--------+ + + + + | 06/18/ | Pharmacy | | | | | 2017 | Visit | | | | +--------+ + + + + | 06/18/ | Documentati | | Obi Lozoya, | Prior Authorization | | 2017 | on | | Terri Casey | Request - Medication | | | | | | (Progesterone in | | | | | | Oil) | +--------+ + + + + | 06/17/ | MyChart | | Fariba Wilson MD | RE:Progesterone and | | 2017 | Encounter | | | Estrace | +--------+ + + + + | 06/15/ | Telephone | | Fariba Wilson MD | | | 2018 | | | | | +--------+ + + + + | 06/15/ | Pharmacy | | | | | 2017 | Visit | | | | +--------+ + + + + | 06/14/ | Procedure | | Yocasta Jonas MD | Obstetric US Scan | | 2017 | | | | | +--------+ + + + + | 06/14/ | Hospital | | Yocasta Jonas MD | | | 2018 | Encounter | | | | +--------+ + + + + | 06/07/ | Pharmacy | | | | | 2017 | Visit | | | | +--------+ + + + + | 06/04/ | MyChart | | Dangelo Orozco RN | RE: IM injection | | 2017 | Encounter | | | site | +--------+ + + + + | 05/31/ | Telephone | | Fariba Wilson MD | Telephone follow-up | | 2017 | | | | | +--------+ + + + + | 05/29/ | Telephone | | Fariba Wilson MD | | | 2017 | | | | | +--------+ + + + + | 05/28/ | Telephone-S | | Esteban Jay Blood | | | 2017 | cheduled | | | | +--------+ + + + + | 05/28/ | Telephone | | Fariba Wilson MD | Telephone follow-up | | 2017 | | | | | +--------+ + + + + from Last 3 Months Social History + + + +--------+ + | Tobacco Use | Types | Packs/Day | Years | Date | | | | | Used | | + + + +--------+ + | Current Every Day | Cigarettes | 0.5 | 16 | Started: 2000 | | Smoker | | | | | + + + +--------+ + + +---+---+---+ | Smokeless Tobacco: | | | | | Never Used | | | | + +---+---+---+ + + +---------+ + | Alcohol Use | Drinks/We | oz/Week | Comments | | | ek | | | + + +---------+ + | No | 0 | 0.0 | | | | Standard | | | | | drinks or | | | | | | | | | | equivalen | | | | | t | | | + + +---------+ + + + + | Sex Assigned at | Date Recorded | | | | + + + | Not on file | | + + + Last Filed Vital Signs + + + + | Vital Sign | Reading | Time Taken | + + + + | Blood Pressure | 131/84 | 05/18/2018 11:20 AM PDT | + + + + | Pulse | 85 | 05/18/2018 11:20 AM PDT | + + + + | Temperature | 37 C (98.6 F) | 04/11/2018 9:10 AM PDT | + + + + | Respiratory Rate | 15 | 04/11/2018 9:10 AM PDT | + + + + | Oxygen Saturation | 96% | 04/11/2018 9:10 AM PDT | + + + + | Inhaled Oxygen | - | - | | Concentration | | | + + + + | Weight | 89.6 kg (197 lb 8 | 05/18/2018 11:20 AM PDT | | | oz) | | + + + + | Height | 157.5 cm (5' 2") | 05/18/2018 11:20 AM PDT | + + + + | Body Mass Index | 36.12 | 05/18/2018 11:20 AM PDT | + + + + Plan of Treatment + + + + + | Health Maintenance | Due Date | Last Done | Comments | + + + + + | Influenza (Flu) | | 12/27/2017, 10/13/2014, | | | vaccination (#1) | 8 | 03/13/2014, Additional history | | | | | exists | | + + + + + | Pneumococcal (Adult) | Completed | 10/13/2014, 11/27/2013 | | + + + + + Procedures + +--------+ + + + | Procedure Name | Priori | Date/Time | Associated Diagnosis | Comments | | | ty | | | | + +--------+ + + + | [facility] OB ULTRASOUND | Routin | 06/29/2018 | | Results for this | | | e | 7:03 AM | examination or test, | procedure are in the | | | | PDT | | results section. | | | | | unconfirmed | | + +--------+ + + + | [facility] OB ULTRASOUND | Routin | 06/21/2018 | | Results for this | | | e | 7:17 AM | examination or test, | procedure are in the | | | | PDT | | results section. | | | | | unconfirmed | | + +--------+ + + + | [facility] OB ULTRASOUND | Routin | 06/14/2018 | | Results for this | | | e | 7:36 AM | examination or test, | procedure are in the | | | | PDT | | results section. | | | | | unconfirmed | | + +--------+ + + + | [place] TRANSFER OF | Routin | 06/10/2018 | Encounter for | | | EMBRYO,INTRAUTERINE | e | 9:16 AM | assisted | | | | | PDT | reproductive | | | | | | fertility procedure | | | | | | cycle | | + +--------+ + + + | LAB REPORTS | | 05/31/2018 | | Results for this | | | | 12:00 AM | | procedure are in the | | | | PDT | | results section. | + +--------+ + + + | HCG BETA QUANT, | Routin | 05/31/2018 | | Results for this | | PLASMA | e | 12:00 AM | | procedure are in the | | | | PDT | | results section. | + +--------+ + + + | LAB REPORTS | | 05/28/2018 | | Results for this | | | | 12:00 AM | | procedure are in the | | | | PDT | | results section. | + +--------+ + + + | HCG BETA QUANT, | Routin | 05/28/2018 | | Results for this | | PLASMA | e | 12:00 AM | | procedure are in the | | | | PDT | | results section. | + +--------+ + + + from Last 3 Months Results [facility] OB ULTRASOUND (06/29/2018 7:03 AM)Only the most recent of 3 results within the time dorothy bess is included. + + + | Narrative | Performed At | + + + | Refer to the encounter notes for imaging results. | | + + + LAB REPORTS (05/31/2018)Only the most recent of 2 results within the time period is include d. + + + | Narrative | Performed At | + + + | | | + + + HCG BETA QUANT, PLASMA (05/31/2018)Only the most recent of 2 results within the time period is included. + +-------+ + + | Component | Value | Ref Range | Performed At | + +-------+ + + | HCG BETA, PLASMA | 2,070 | mIU/mL | NON [facility] | + +-------+ + + + + | Specimen | + + | Blood - Blood | + + + +---------+ + + | Performing | Address | City/State/Zipcode | Phone Number | | Organization | | | | + +---------+ + + | NON [facility] | | | | + +---------+ + + from Last 3 Months Insurance + +--------+ +--------+-------+---------+ | Payer | Benefi | Subscriber | Type | Phone | Address | | | t Plan | ID | | | | | | / | | | | | | | Group | | | | | + +--------+ +--------+-------+---------+ | PAYABLE REPRESENTATIVE MEDICAID | PAYABLE REPRESENTATIVE | xxxxxxxx | Medica | | | | | YAMHIL | | id | | | | | L | | | | | | | COMMUN | | | | | | | ITY | | | | | + +--------+ +--------+-------+---------+ | [employer] | FIRST | xxxxxxxxxxx | PPO | | | | | CHOICE | | | | | | | | | | | | | | HEALTH | | | | | + +--------+ +--------+-------+---------+ | [facility] | JORDANIAN | xxxxxxxxx | Agency | | | | SERVICE | | | | | | | | HEALTH | | | | | | | | | | | | | | SERVIC | | | | | | | E | | | | | + +--------+ +--------+-------+---------+ + +--------+ +--------+ + + | Guarantor Name | Accoun | Relation to | Date | Phone | Billing Address | | | t Type | Patient | of | | | | | | | | | | + +--------+ +--------+ + + | FARRAH OLMEDO | Person | Self [birth year] | Home: | [address] | | | [place] | | 1984 | [phone] | [place] [address] | | | melvina | | | [phone] | | + +--------+ +--------+ + + | FARRAH OLMEDO | Agency | Self | [birth year] | Home: | [address] | | | | | 1984 | +- | [place] [address] | | | | | | [address] | | + +--------+ +--------+ + + | FARRAH OLMEDO | UFC | Self | [birth year] | Home: | [address] | | | [place] | | 1984 | +- | [place] [address] | | | g Use | | | [address] | | | | Only | | | | | + +--------+ +--------+ + +
--- OUTSIDE RECORDS SUMMARY | ~2018-08-28 | XMS | Clinical Summary ---
Demographics + + + | Address | [address] | | | [place] [address] | + + + | Home Phone | | + + + | Preferred Language | Unknown | + + + | Marital Status | | + + + | Moravian Affiliation | SPI | + + + | Race | White | + + + | Ethnic Group | Not or | + + + Author + + + | Author | [facility] | + + + | Organization | [facility] | + + + | [...] Team Providers + +------+ + | Care Mixed Crop Farmer Name | Role | Phone | + +------+ + | Saniya SappP | PP | | + +------+ + Source Comments RAEANN is fully live on both [facility] Ambulatory and [facility] InPatient.[facility] Allergies + + + + + [...] | | original. FLOW Renan Olmedo / [id number] | | Recurrent Loss Bloods Drawn Tubal [...] (Est | | Gestational Age): Date: Results: LENDING ADVISOR | | Physician: Doctor letter dictated on: [...] | |Results: | | | | | |LENDING ADVISOR Physician: | |Doctor letter dictated on: by: | | | |MEDICATION PLAN: | | | + + + + + | IVF screening checklist | 09/01/2016 | + + + + + | Overview: Formatting of this note may be different from the | | original.Pre - IVF Screening ChecklistName: Farrahanisha Fox | | [facility] [place] DATE COMMENT/RESULT IVF | | [...] MALE: Ruben Olmedo "Gabo" [birth year] | | [id number] DATE COMMENTS/RESULT HIV Ab Screen 08/23/16 neg [...] Health consult needed if donor sperm/ 3rd constitution party, | | | | Reproductive Psychologist | | visit.-Mammogram for advance maternal age > 50 (controversial, | | offer between ages 40-50, [id number]). | |Hep C Surface Antibody 08/23/16 neg [...] Health consult needed if donor sperm/ 3rd constitution party, Reproductive Psychologist vi sit. | |-Mammogram [...] + | 06/04/ | MyChart | | Dnagelo Orozco RN | RE: IM injection | [...] | + +--------+ + + + | [place] TRANSFER OF | Routin | 06/10/2018 | [...] | | | + +--------+ +--------+-------+---------+ | HAT [employer] CAP SEWER MEDICAID | HAT AND CAP SEWER | xxxxxxxx | Medica | | | [...] | | | + +--------+ +--------+-------+---------+ | [facility] | [place]AN | xxxxxxxxx | Agency | | | [...] | Self | [birth year] | Home: | [address] | | | [place] | | 1984 | [phone] | [place] [address] | | | [place]ina | | | [address] | | + +--------+ +--------+ + + | FARRAH OLMEDO | Agency | Self | [birth year] | Home: | [address] | | | | | 1984 | +- | [place] [address] | | | | | | [address] | | + +--------+ +--------+ + + | FARRAH OLMEDO | UFC | Self | [birth year] | Home: | [address] | | | [place] | | 1984 | +- | [place] [address] | | | g Use | | | [address] | | | | Only | | | | | + +--------+ +--------+ + +
--- OUTSIDE RECORDS SUMMARY | ~2018-08-28 | XMS | Encounter Summary ---
Demographics + + + | Address | [address] | | | [place] [address] | + + + | Home Phone | | + + + | Preferred Language | Unknown | + + + | Marital Status | | + + + | Buddhist Affiliation | SPI | + + + | Race | White | + + + | Ethnic Group | Not or | + + + Author + + + | Author | [facility] | + + + | Organization | [facility] | + + + | Address | [...] Team Providers + +------+ + | Care Drop Wire Aliner Name | Role | Phone | + +------+ + | Saniya Sapp | PCP | | + +------+ + Reason for Visit + + + | Reason | Comments | + + + | Obstetric US Scan | | + + + Other (Routine) + +--------+ + + + + | Status | Reason | Specialty | Diagnoses / | Referred By | Referred To | | | | | Procedures | Contact | Contact | + +--------+ + + + + | Authorized | | Reproductive | | Non-[facility] | | | | Endocrinology | | Epic Dept | [facility] | | | | /Infertility | | | [address] | | | | | | | [address] | | | | | | | Mailcode: | | | | | | | [facility] | | | | | | | for [facility] | | | | | | | and Healing, | | | | | | | [address]th Floor | | | | | | | [place], [place] | | | | | | | [address] | | | | | | | Phone: | | | | | | | [phone] | | | | | | | Fax: | | | | | | | [phone] | + +--------+ + + + + Encounter Details +--------+ + + + + | Date | Type | Department | Care Team | Description | +--------+ + + + + | 06/21/ | Procedure | University | Deven Dewitt MD | Obstetric US Scan | | 2018 | | Fertility | [address] | | | | | Consult[facility] at [facility] | [facility] [place] | | | | | [address] | [address] | | | | | Mailcode: [facility] | [phone] | | | | | [facility] | | | | | | and , | | | | | | Floor [place], [place] | | | | | | [address] | | | | | | [phone] | | | +--------+ + + + + Social History + + + +--------+ + | Tobacco Use | Types | Packs/Day | Years | Date | | | | | Used | | + + + +--------+ + | Current Every Day | Cigarettes | 0.5 | 16 | Started: 2001 | | Smoker | | | | [...] + + + as of this encounter Progress Notes Sarah Feliciano MA - 06/21/2018 11:45 AM PDTFormatting of this note may be different from the original. Obstetrical Ultrasound 06/21/2018 Indication: COH/IVF ET date: 05.18.18 LMP: No LMP recorded. Gestational Age: 7w4d EDC: 02.03.19 Blood Type: Lab Results Component Value Date ABO O 12/22/2017 ABO O 12/22/2017 Lab Results Component Value Date RH Negative 12/22/2017 RH Negative 12/22/2017 Lab Results Component Value Date ABSCREEN Negative 12/22/2017 Approach: transvaginal Uterus: normal Baby A Gestational Sac: present 2.6cm 7w4d Yolk Sac: present 4.9mm [place] Rump Length = 12mm, gestational age: Heart Beat: 156 Baby B Gestational Sac: present 2.6cm 7w5d Yolk Sac: present 5.4mm [place] Rump Length = 13mm, gestational age: Heart Beat: 132 Left ovary/adnexa: normal and 24x16 suppressed Right ovary/adnexa: normal and 23x18 suppressed Interpretation: viable di/di TIUP s=d, concordant Plan: strict precautions given Call w/OB provider name I, Deven Dewitt MD, performed all aspects of this ultrasound. in this encounter Plan of Treatment Not on fileas of this encounter Procedures + +--------+ + + + | Procedure Name | Priori | Date/Time | Associated Diagnosis | Comments | | | ty | | | | + +--------+ + + + | [facility] OB ULTRASOUND | Routin | 06/21/2018 | | Results for this | | | e | 7:17 AM | examination or test, | procedure are in the | | | | PDT | | results section. | | | | | unconfirmed | | + +--------+ + + + in this encounter Results [facility] OB ULTRASOUND (06/21/2018 7:17 AM) + + + | Narrative | Performed At | + + + | Refer to the encounter notes for imaging results. | | + + + in this encounter Visit Diagnoses + + | Diagnosis | + + | examination or test, unconfirmed - Primary | + + | resulting from assisted reproductive technology in first trimester | + +"
--- OUTSIDE RECORDS SUMMARY | ~2018-08-28 | XMS | Encounter Summary ---
Demographics + + + | Address | [address] | | | [place] [address] | + + + | Home Phone | | + + + | Preferred Language | Unknown | + + + | Marital Status | | + + + | Lutheran Affiliation | SPI | + + + | Race | White | + + + | Ethnic Group | Not or | + + + Author + + + | Author | [facility] | + + + | Organization | [facility] | + + + | [...] Team Providers + +------+ + | Care Panel Wirer Name | Role | Phone | + +------+ + | Saniya Sapp | PCP | + | + +------+ + Encounter Details +--------+ + + + + | Date | Type | Department | Care Team | Description | +--------+ + + + + | 06/22/ | Pharmacy | [facility] | | | | 2017 | Visit | & [facility]aling Pharmacy | | | | | | [address] | | | | | | [place], [place] | | | | | | [address] | | | | | | [phone] | | | +--------+ + + + [...]
--- OUTSIDE RECORDS SUMMARY | ~2018-08-28 | XMS | Encounter Summary ---
Demographics + + + | Address | [address] | | | [place] [address] | + + + | Home Phone | | + + + | Preferred Language | Unknown | + + + | Marital Status | | + + + | Denominational Affiliation | SPI | + + + | Race | White | + + + | Ethnic Group | Not or | + + + Author + + + | Author | [facility] | + + + | Organization | [facility] | + + + | [...] Team Providers + +------+ + | Care Repair Department Supervisor Name | Role | Phone | + +------+ + | Saniya Sapp | PCP | | + +------+ + Reason for Visit + + + | Reason | Comments | + + + | Bleeding | | + + + Encounter Details +--------+ + + + + | Date | Type | Department | Care Team | Description | +--------+ + + + + | 08/01/ | Telephone | University | Fariba Wilson MD | Bleeding | | 2018 | | Fertility | [address] | | | | | Consultants at [facility] | Julee Reza [place], | | | | | [address] | [place] [address] | | | | | Mailcode: CH10 | [phone] | | | | | [facility] | | | | | | and [place], | | | | | | [place], [place] | | | | | | [address] | | | | | | [phone] | | | +--------+ + + + [...]
--- OUTSIDE RECORDS SUMMARY | ~2018-08-28 | XMS | Encounter Summary ---
Demographics + + + | Address | [address] | | | [place] [address] | + + + | Home Phone | | + + + | Preferred Language | Unknown | + + + | Marital Status | | + + + | Roman Catholic Affiliation | SPI | + + + | Race | White | + + + | Ethnic Group | Not or | + + + Author + + + | Author | [facility] | + + + | Organization | [facility] | + + + | Address [...] Team Providers + +------+ + | Care Jewel Bearing Grinder Name | Role | Phone | + [...] | | | | | | | [place], [place] | | | | | | | [address] | | | | | | | Phone: | | | | | | | [phone] | | | | | | | Fax: | | | | | | | [phone] | + +--------+ + + + + Encounter Details +--------+ + + + + | Date | Type | Department | Care Team | Description | +--------+ + + + + | 06/14/ | Procedure | University | Yocasta Jonas MD | Obstetric US Scan | | 2018 | | Fertility | [address] | | | | | Consultants at [facility] | [facility] [place] | | | | | [address] | [address] | | | | | Mailcode: CH10F | [phone] | | | | | [facility] | | | | | | and , | | | | | | [place], [place] | | | | | | [address] | | | | | | [phone] | | | +--------+ + + + [...] encounter Progress Notes Sarah Feliciano MA - 06/14/2018 3:00 PM PDTFormatting of this note may be different from the original. Obstetrical Ultrasound 06/14/2018 Indication: IVF ET date: 05.18.18 LMP: No LMP recorded. Gestational Age: 6w4d EDC: Blood Type: Lab Results Component Value Date ABO O 12/22/2017 ABO O 12/22/2017 Lab Results Component Value Date RH Negative 12/22/2017 RH Negative 12/22/2017 Lab Results Component Value Date ABSCREEN Negative 12/22/2017 Approach: transvaginal Uterus: normal Twin A Gestational Sac: present 1.57 6w3d Yolk Sac: present 0.38 [place] Rump Length = 0.65, gestational age: 6w4d Heart Beat: 116bpm Twin B Gestational Sac: present 1.76 6w5d Yolk Sac: present 0.47 [place] Rump Length = 0.55, gestational age: 6w2d Heart Beat: 119bpm Left ovary/adnexa: normal Right ovary/adnexa: normal Interpretation: Viable TIUP. Size c/w dates. +FHR x 2. Adnexae WNL bilat. Plan: Continue E+P as per protocol. Rpt OB scan in 1 wk. 2nd scan recommended on Formal U/S at: Livestock Caretaker: I personally performed all components of this scan, Yocasta Jonas MD. in this encounter Plan of Treatment Not [...] + + + in this encounter Results [facility] OB ULTRASOUND (06/14/2018 7:36 AM) + + + | Narrative | [...]
--- OUTSIDE RECORDS SUMMARY | ~2018-08-28 | XMS | Encounter Summary ---
Demographics + + + | Address | [address] | | | [place] [address] | + + + | Home Phone | | + + + | Preferred Language | Unknown | + + + | Marital Status | | + + + | Evangelical Affiliation | SPI | + + + | Race | White | + + + | Ethnic Group | Not or | + + + Author + + + | Author | [facility] | + + + | Organization | [facility] | + + + | [...] Team Providers + +------+ + | Care Locomotive Crane Engineer Name | Role | Phone | + +------+ + | Saniya Sapp | PCP | | + +------+ + Encounter Details +--------+ + + + + | Date | Type | Department | Care Team | Description | +--------+ + + + + | 06/07/ | Pharmacy | [facility] | | | | 2018 | Visit | & Healing Pharmacy | | | | | | [address] | | | | | | [place], [place] | | | | | | [address] | | | | | | [phone] | | | +--------+ + + + [...]
--- OUTSIDE RECORDS SUMMARY | ~2018-08-28 | XMS | Encounter Summary ---
Demographics + + + | Address | [address] | | | [place] [address] | + + + | Home Phone | | + + + | Preferred Language | Unknown | + + + | Marital Status | | + + + | Buddhist Affiliation | SPI | + + + | Race | White | + + + | Ethnic Group | Not or | + + + Author + + + | Author | [facility] | + + + | Organization | [facility] | + + + | [...] Team Providers + +------+ + | Care Plate Cutter Name | Role | Phone | + +------+ + | Saniya Sapp | PCP | | + +------+ + Encounter Details +--------+ + + + + | Date | Type | Department | Care Team | Description | +--------+ + + + + | 07/18/ | Veronica | [place] | Fariba Wilson MD | RE: [place] | | 2018 | Encounter | Fertility | [address] | tracey | | | | Consultants at [facility] | [address]ulee Reza [place], | | | | | [address] | [place] [address] | | | | | Mailcode: CH10F | [phone] | | | | | [facility] | | | | | | and , | | | | | | Floor [place], [place] | | | | | | [address] | | | | | | [phone] | | | +--------+ + + + [...]
--- OUTSIDE RECORDS SUMMARY | ~2018-08-28 | XMS | Encounter Summary ---
Demographics + + + | Address | [address] | | | [place] [address] | + + + | Home Phone | | + + + | Preferred Language | Unknown | + + + | Marital Status | | + + + | Yazidi Affiliation | SPI | + + + | Race | White | + + + | Ethnic Group | Not or | + + + Author + + + | Author | [facility] | + + + | Organization | [facility] | + + + | [...] Team Providers + +------+ + | Care Farmworker Fryer Farm Name | Role | Phone | + +------+ + | Saniya Sapp | PCP | + | + +------+ + Encounter Details +--------+ + + + + | Date | Type | Department | Care Team | Description | +--------+ + + + + | 07/16/ | Documentati | [place] | Fariba Wilson MD | | | 2018 | on | Fertility | [address] | | | | | Consultants at [facility] | [address]ulee Reza [place], | | | | | [address] | [place] [address] | | | | | Mailcode: CH10 | [phone] | | | | | [facility] | | | | | | and [place], | | | | | | Floor [place], [place] | | | | | | [address] | | | | | | [phone] | | | +--------+ + + + [...]
--- OUTSIDE RECORDS SUMMARY | ~2018-08-28 | XMS | Encounter Summary ---
Demographics + + + | Address | [address] | | | [place] [address] | + + + | Home Phone | | + + + | Preferred Language | Unknown | + + + | Marital Status | | + + + | Gnosticism Affiliation | SPI | + + + | Race | White | + + + | Ethnic Group | Not or | + + + Author + + + | Author | [facility] | + + + | Organization | [facility] | + + + | Address [...] Team Providers + +------+ + | Care Tray Setter Name | Role | Phone | + +------+ + | Saniya SappP | PCP | | + +------+ + Encounter Details +--------+ + + + + | Date | Type | Department | Care Team | Description | +--------+ + + + + | 06/17/ | MyChart | [place] | Fariba Wilson MD | RE:Progesterone and | | 2018 | Encounter | Fertility | [address] | [place] | | | | Consultants at [facility] | [address] Re[address] [place], | | | | | [address] | [place] [address] | | | | | Mailcode: CH10F | [phone] | | | | | [facility] | | | | | | and [address], | | | | | | Floor [place], [place] | | | | | | [address] | | | | | | [phone] | | | +--------+ + + + [...]
--- OUTSIDE RECORDS SUMMARY | ~2018-08-28 | XMS | Encounter Summary ---
Demographics + + + | Address | [address] | | | [place] [address] | + + + | Home Phone | | + + + | Preferred Language | Unknown | + + + | Marital Status | | + + + | Restorationism Affiliation | SPI | + + + | Race | White | + + + | Ethnic Group | Not or | + + + Author + + + | Author | [facility] | + + + | Organization | [facility] | + + + | [...] Team Providers + +------+ + | Care Galley Hand Name | Role | Phone | + +------+ + | Saniya Sapp | PCP | + | + +------+ + Encounter Details +--------+ + + + + | Date | Type | Department | Care Team | Description | +--------+ + + + + | 06/20/ | Pharmacy | [facility] | | | | 2017 | Visit | & Healing Pharmacy | | | | | | [address] | | | | | | [place], [place] | | | | | | [address] | | | | | | [phone] | | | +--------+ + + + [...]
--- OUTSIDE RECORDS SUMMARY | ~2018-08-28 | XMS | Encounter Summary ---
Demographics + + + | Address | [address] | | | [place] [address] | + + + | Home Phone | | + + + | Preferred Language | Unknown | + + + | Marital Status | | + + + | Hindu Affiliation | SPI | + + + | Race | White | + + + | Ethnic Group | Not or | + + + Author + + + | Author | [facility] | + + + | Organization | [facility] | + + + | Address | [...] Team Providers + +------+ + | Care Concrete Mixer Truck Driver Name | Role | Phone | + +------+ + | Saniya Sapp | PCP | + | + +------+ + Encounter Details +--------+ + + + + | Date | Type | Department | Care Team | Description | +--------+ + + + + | 06/18/ | Pharmacy | [facility] | | | | 2017 | Visit | & Healing Pharmacy | | | | | | [address] | | | | | | [place], [place] | | | | | | [address] | | | | | | [phone] | | | +--------+ + + + [...]
--- OUTSIDE RECORDS SUMMARY | ~2018-08-28 | XMS | Encounter Summary ---
Demographics + + + | Address | [address] | | | [place] [address] | + + + | Home Phone | | + + + | Preferred Language | Unknown | + + + | Marital Status | | + + + | Amish Affiliation | SPI | + + + | Race | White | + + + | Ethnic Group | Not or | + + + Author + + + | Author | [facility] | + + + | Organization | [facility] | + + + | Address [...] Team Providers + +------+ + | Care Integration Software Developer Name | Role | Phone | + +------+ + | Saniya Sapp | PCP | | + +------+ + Reason for Visit + + + | Reason | Comments | + + + | Follow-up encounter | | + + + Encounter Details +--------+ + + + + | Date | Type | Department | Care Team | Description | +--------+ + + + + | 08/03/ | Telephone | Center | Ladan Rodríguez, | Follow-up encounter | | 2018 | | at [facility] [address] | [place],[facility] [address] | | | | | [facility] | [address] | | | | | Physicians [place] | [place], [place] | | | | | [place], [place] | [address] | | | | | [address] | | | | | | [phone] | | | +--------+ + + + [...]
--- OUTSIDE RECORDS SUMMARY | ~2018-08-28 | XMS | Encounter Summary ---
Demographics + + + | Address | [address] | | | [place] [address] | + + + | Home Phone | | + + + | Preferred Language | Unknown | + + + | Marital Status | | + + + | Synagogue Affiliation | SPI | + + + [...] Team Providers + +------+ + | Care Civil Designer Name | Role | Phone | + [...] | | | | | | | [place], [place] | | | | | | | [address] | | | | | | | Phone: | | | | | | | [phone] | | | | | | | Fax: | | | | | | | [phone] | + +--------+ + + + + Encounter Details +--------+ + + + + | Date | Type | Department | Care Team | Description | +--------+ + + + + | 06/29/ | Procedure | University | Fariba Wilson MD | Obstetric US Scan | | 2018 | | Fertility | [address] | | | | | Consultants at [facility] | [address]ulee Re[address] [place], | | | | | [address] | [place] [address] | | | | | Mailcode: CH10F | [phone] | | | | | [facility] | | | | | | and Healing, | | | | | | [place], [place] | | | | | | [address] | | | | | | [phone] | | | +--------+ + + + [...] + as of this encounter Progress Notes Fariba Wilson MD - 06/29/2018 8:30 AM PDTFormatting of this note may be different from the original. Obstetrical Ultrasound 06/29/2018 Indication: IVF FET date: 05/18/2018 LMP: No LMP recorded. Gestational Age: 8w5d EDC: 02/03/2019 Notes: Patient notes light nausea but rarely having emesis, hydrating well & tolerating PO intake. Having sleep disturbance. Blood Type: Lab Results Component Value Date ABO O 12/22/2017 ABO O 12/22/2017 Lab Results Component Value Date RH Negative 12/22/2017 RH Negative 12/22/2017 Lab Results Component Value Date ABSCREEN Negative 12/22/2017 twin A (more fundal): Approach: transvaginal Uterus: normal Gestational Sac: present 3.22 cm, gestational age: 8w3d Yolk Sac: present 0.41 cm [place] Rump Length = 2.12 cm, gestational age: 8w5d Heart Beat: 172 bpm twin B: Approach: transvaginal Uterus: normal Gestational Sac: present Yolk Sac: present [place] Rump Length = 2.19 cm, gestational age: 8w6d Heart Beat: 173 bpm Left ovary/adnexa: normal Right ovary/adnexa: normal Interpretation: Viable di/di twin IUP, S=D, concordant, reassuring heart tones x 2 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 We reviewed today s reassuring USN results. 2. Will continue BID estrace and IM progesterone through week 12. 3. Encouraged frequent snacks, increased caloric intake to accommodate twin gestation. 4. Transition to OB care - referred to [facility] group. I, Mariely Betancourt, am functioning as a scribe for Dr. Fariba Wilson MD. 06/29/2018 8:37 AM Display Progress Note in MyChart: No I have reviewed and verified the above scribed note of this patient's visit and made edits as appropriate. FARIBA WILSON MD in this encounter Plan of Treatment Not on fileas of this encounter Procedures + +--------+ + + + | Procedure Name | Priori | Date/Time | Associated Diagnosis | Comments | | | ty | | | | + +--------+ + + + | [facility] ULTRASOUND | Routin | 06/29/2018 | | Results for this | | | e | 7:03 AM | examination or test, | procedure are in the | | | | PDT | | results section. | | | | | unconfirmed | | + +--------+ + + + in this encounter Results [facility] OB ULTRASOUND (06/29/2018 7:03 AM) + + + | Narrative | Performed At | + + + | Refer to the encounter notes for imaging results. | | + + + in this encounter Visit Diagnoses + + | Diagnosis | + + | Dichorionic diamniotic twin in first trimester - Primary | + + | Twin , antepartum | + + | examination or test, unconfirmed | + + | Encounter for supervision of high-risk with history of infertility in first | | trimester | + + | resulting from assisted reproductive technology in first trimester | + +"
--- OUTSIDE RECORDS SUMMARY | ~2018-08-28 | XMS | Encounter Summary ---
Demographics + + + | Address | [address] | | | [place] [address] | + + + | Home Phone | | + + + | Preferred Language | Unknown | + + + | Marital Status | | + + + | Muslim Affiliation | SPI | + + + | Race | White | + + + | Ethnic Group | Not or | + + + Author + + + | Author | [facility] | + + + | Organization | [facility] | + + + | Address | [...] Team Providers + +------+ + | Care Window Glazier Helper Name | Role | Phone | + +------+ + | Saniya Sapp | PCP | + | + +------+ + Encounter Details +--------+ + + + + | Date | Type | Department | Care Team | Description | +--------+ + + + + | 05/29/ | Telephone | [place] | Fariba Wilson MD | | | 2018 | | Fertility | [address] | | | | | Consultants at [facility] | [address] [place], | | | | | [address] | [place] [address] | | | | | Mailcode: CH10F | [phone] | | | | | [facility] | | | | | | and , | | | | | | Floor [place], [place] | | | | | | [address] | | | | | | [phone] | | | +--------+ + + + [...] as of this encounter Plan of Treatment + +--------+ + + | Name | Priori | Associated Diagnoses | Order Schedule | | | ty | | | + +--------+ + + | HCG BETA QUANT, PLASMA | Urgent | of | Expected: 05/29/2018 | | | | unknown anatomic | (Approximate), | | | | location | Expires: 06/29/2019 | + +--------+ + + as of this encounter Visit Diagnoses + + | Diagnosis | + + | of unknown anatomic location - Primary | + + | state, incidental | + +"
--- OUTSIDE RECORDS SUMMARY | ~2018-08-28 | XMS | Encounter Summary ---
Demographics + + + | Address | [address] | | | [place] [address] | + + + | Home Phone | | + + + | Preferred Language | Unknown | + + + | Marital Status | | + + + | Anglican Affiliation | SPI | + + + | Race | White | + + + | Ethnic Group | Not or | + + + Author + + + | Author | [facility] | + + + | Organization | [facility] | + + + | [...] Team Providers + +------+ + | Care Continuous Drier Operator Name | Role | Phone | + [...] + + | 05/28/ | Telephone | [place] | Fariba Wilson MD | Telephone follow-up | | 2018 | | Fertility | [address] | | | | | Consultants at [facility] | [address]ulee Reza [place], | | | | | [address] | [place] [address] | | | | | Mailcode: 10 | [phone] | | | | | [facility] | | | | | | and | | | | | | [place], [place] | | | | | | [address] | | | | | | [phone] | | | +--------+ + + + [...] HCG BETA QUANT, PLASMA | Urgent | Less than 8 weeks | Ordered: 05/28/2018 | | | | gestation of | | | | | | | + +--------+ + + as of this encounter Procedures + +--------+ + [...] + + + in this encounter Results HCG BETA QUANT, PLASMA (05/28/2018) + +-------+ + + | Component | Value | Ref Range | Performed At | + +-------+ + + | HCG BETA, PLASMA | 310 | mIU/mL | NON [facility] | [...] + | Diagnosis | + + | Less than 8 weeks gestation of - Primary | + + | state, incidental | + + | Flowsheet | + + | Encounter for assisted reproductive fertility procedure cycle | + +"
--- OUTSIDE RECORDS SUMMARY | ~2018-08-28 | XMS | Encounter Summary ---
Demographics + + + | Address | [address] | | | [place] [address] | + + + | Home Phone | | + + + | Preferred Language | Unknown | + + + | Marital Status | | + + + | Scientologist Affiliation | SPI | + + + | Race | White | + + + | Ethnic Group | Not or | + + + Author + + + | Author | [facility] | + + + | Organization | [facility] | + + + | Address [...] Team Providers + +------+ + | Care Impregnating Tank Operator Name | Role | Phone | [...] | | | | | | CH10F [place] | | | | | | | [facility] | | | | | | | and Healing, | | | | | | | Floor | | | | | | | [place], [place] | | | | | | | [address] | | | | | | | Phone: | | | | | | | [phone] | | | | | | | Fax: | | | | | | | [phone] | + +--------+ + + + + Encounter Details +--------+ + + + + | Date | Type | Department | Care Team | Description | +--------+ + + + + | 05/28/ | Telephone-S | [place] | [facility] | | | 2018 | cheduled | Fertility | [address] | | | | | Consultants at [facility] | [place] [address] | | | | | [address] | | | | | | Mailcode: CH10F | | | | | | [facility] | | | | | | and Healing, | | | | | | Floor [facility] [place] | | | | | | [address] | | | | | | [phone] | | | +--------+ + + + [...]
--- OUTSIDE RECORDS SUMMARY | ~2018-08-28 | XMS | Encounter Summary ---
Demographics + + + | Address | [address] | | | [place] [address] | + + + | Home Phone | | + + + | Preferred Language | Unknown | + + + | Marital Status | | + + + | Scientology Affiliation | SPI | + + + | Race | White | + + + | Ethnic Group | Not or | + + + Author + + + | Author | [facility] | + + + | Organization | [facility] | + + + | Address | Unknown | + + + | Phone | Unavailable | + + + Support + + +---------+ + | Name | Relationship | Address | Phone | + + +---------+ + | Keehsa Fox | ECON | Unknown | | + + +---------+ + | Gabo Olmedo | ECON | Unknown | | + + +---------+ + Care Team Providers + +------+ + | Care Sports Reporter Name | Role | Phone | + +------+ + | Saniya Sapp | PCP | + | + +------+ + Encounter Details +--------+ + + + + | Date | Type | Department | Care Team | Description | +--------+ + + + + | 07/20/ | Pharmacy | [facility] | | | | 2017 | Visit | & Healing Pharmacy | | | | | | [address] | | | | | | [place], [place] | | | | | | [address] | | | | | | [phone] | | | +--------+ + + + [...]
--- OUTSIDE RECORDS SUMMARY | ~2018-08-28 | XMS | Encounter Summary ---
Demographics + + + | Address | [address] | | | [place] [address] | + + + | Home Phone | | + + + | Preferred Language | Unknown | + + + | Marital Status | | + + + | Samaritan Affiliation | SPI | + + + | Race | White | + + + | Ethnic Group | Not or | + + + Author + + + | Author | [facility] | + + + | Organization | [facility] | + + + | [...] Team Providers + +------+ + | Care Career Development Facilitator Name | Role | Phone | + +------+ + | Saniya Sapp | PCP | | + +------+ + Encounter Details +--------+ + + + + | Date | Type | Department | Care Team | Description | +--------+ + + + + | 07/18/ | [place] | [place] | Fariba Wilson MD | RE: [place] | | 2018 | Encounter | Fertility | [address] | tracey | | | | Consultants at [facility] | Julee Reza [place], | | | | | [address] | [place] [address] | | | | | Mailcode: CH10F | [phone] | | | | | [facility] | | | | | | and , | | | | | | Floor [place], [place] | | | | | | [address] | | | | | | [phone] | | | +--------+ + + + [...]
--- OUTSIDE RECORDS SUMMARY | ~2018-08-28 | XMS | Encounter Summary ---
Demographics + + + | Address | [address] | | | [place] [address] | + + + | Home Phone | | + + + | Preferred Language | Unknown | + + + | Marital Status | | + + + | Presybeterian Affiliation | SPI | + + + | Race | White | + + + | Ethnic Group | Not or | + + + Author + + + | Author | [facility] | + + + | Organization | [facility] | + + + [...] Team Providers + +------+ + | Care Channel Rougher Name | Role | Phone | + [...] | | | | | | CH10F [facility] | | | | | | | [facility] | | | | | | | and Healing, | | | | | | | Floor | | | | | | | [place], [place] | | | | | | | [address] | | | | | | | Phone: | | | | | | | [phone] | | | | | | | Fax: | | | | | | | [phone] | + +--------+ + + + + Encounter Details +--------+ + + + + | Date | Type | Department | Care Team | Description | +--------+ + + + + | 05/28/ | Telephone-S | [place] | [facility] | | | 2018 | cheduled | Fertility | [address] | | | | | Consultants at [facility] | [place] [address] | | | | | [address] | | | | | | Mailcode: CH10F | | | | | | [facility] | | | | | | and Healing, | | | | | | Floor [facility] [place] | | | | | | [address] | | | | | | [phone] | | | +--------+ + + + [...]
--- OUTSIDE RECORDS SUMMARY | ~2018-08-28 | XMS | Encounter Summary ---
Demographics + + + | Address | [address] | | | [place] [address] | + + + | Home Phone | | + + + | Preferred Language | Unknown | + + + | Marital Status | | + + + | Temple Affiliation | SPI | + + + | Race | White | + + + | Ethnic Group | Not or | + + + Author + + + | Author | [facility] | + + + | Organization | [facility] | + + + | Address [...] Team Providers + +------+ + | Care Supervisor Heavy Equipment Name | Role | Phone | + +------+ + | Saniya Sapp | PCP | + | + +------+ + Encounter Details +--------+ + + + + | Date | Type | Department | Care Team | Description | +--------+ + + + + | 06/15/ | Telephone | [place] | Fariba Wilson MD | | | 2018 | | Fertility | [address] | | | | | Consultants at [facility] | Julee Aggarwal, | | | | | [address] | [place] [address] | | | | | Mailcode: CH10F | [phone] | | | | | [facility] | | | | | | and , | | | | | | Floor [place], [place] | | | | | | [address] | | | | | | [phone] | | | +--------+ + + + [...]
--- OUTSIDE RECORDS SUMMARY | ~2018-08-28 | XMS | Encounter Summary ---
Demographics + + + | Address | [address] | | | [place] [address] | + + + | Home Phone | | + + + | Preferred Language | Unknown | + + + | Marital Status | | + + + | Latter-Day Affiliation | SPI | + + + | Race | White | + + + | Ethnic Group | Not or | + + + Author + + + | Author | [facility] | + + + | Organization | [facility] | + + + | Address | [...] Team Providers + +------+ + | Care Performance Architect Name | Role | Phone | + +------+ + | Saniya Sapp | PCP | | + +------+ + Encounter Details +--------+ + + + + | Date | Type | Department | Care Team | Description | +--------+ + + + + | 06/04/ | Veronica | [place] | Dangelo Orozco RN | RE: IM injection | | 2018 | Encounter | Fertility | [address] | site | | | | Consultants at [facility] | Julee Reza [place], | | | | | [address] | [place] [address] | | | | | Mailcode: CH10F | | | | | | [facility] | | | | | | and Healing, | | | | | | Floor [place], [place] | | | | | | [address] | | | | | | [phone] | | | +--------+ + + + [...]
--- OUTSIDE RECORDS SUMMARY | ~2018-08-28 | XMS | Encounter Summary ---
Demographics + + + | Address | [address] | | | [place] [address] | + + + | Home Phone | | + + + | Preferred Language | Unknown | + + + | Marital Status | | + + + | Sabianism Affiliation | SPI | + + + [...] Team Providers + +------+ + | Care Class B Driver Name | Role | Phone | + +------+ + | Saniya Sapp | PCP | | + +------+ + Encounter Details +--------+ + + + + | Date | Type | Department | Care Team | Description | +--------+ + + + + | 06/04/ | Veronica | [place] | Dangelo Orozco RN | RE: IM injection | | 2018 | Encounter | Fertility | [address] | site | | | | Consultants at [facility] | Julee Reza [place], | | | | | [address] | [place] [address] | | | | | Mailcode: CH10F | | | | | | [facility] | | | | | | and Healing, | | | | | | Floor [place], [place] | | | | | | [address] | | | | | | [phone] | | | +--------+ + + + [...]
--- OUTSIDE RECORDS SUMMARY | ~2018-08-28 | XMS | Encounter Summary ---
Demographics + + + | Address | [address] | | | [place] [address] | + + + | Home Phone [...] Team Providers + +------+ + | Care Welding Foreman Name | Role | Phone | + +------+ + | Saniya Sapp | PCP | | + +------+ + Encounter Details +--------+ + + + + | Date | Type | Department | Care Team | Description | +--------+ + + + + | 06/07/ | Pharmacy | [facility] | | | | 2018 | Visit | & [facility]aling Pharmacy | | | | | | [address] | | | | | | [place], [place] | | | | | | [address] | | | | | | [phone] | | | +--------+ + + + [...]
--- OUTSIDE RECORDS SUMMARY | ~2018-08-28 | XMS | Encounter Summary ---
Demographics + + + | Address | [address] | | | [place] [address] | + + + | Home Phone | | + + + | Preferred Language | Unknown | + + + | Marital Status | | + + + | Protestant Affiliation | SPI | + + + [...] Team Providers + +------+ + | Care Production Line Assembler Name | Role | Phone | + +------+ + | Saniya Sapp | PCP | + | + +------+ + Encounter Details +--------+ + + + + | Date | Type | Department | Care Team | Description | +--------+ + + + + | 06/29/ | Pharmacy | [facility] | | | | 2017 | Visit | & Healing Pharmacy | | | | | | [address] | | | | | | [place], [place] | | | | | | [address] | | | | | | [phone] | | | +--------+ + + + [...]
--- OUTSIDE RECORDS SUMMARY | ~2018-08-28 | XMS | Encounter Summary ---
Demographics + + + | Address | [address] | | | [place] [address] | + + + | Home Phone | | + + + | Preferred Language | Unknown | + + + | Marital Status | | + + + | Yazdanism Affiliation | SPI | + + + | Race | White | + + + | Ethnic Group | Not or | + + + Author + + + | Author | [facility] | + + + | Organization | [facility] | + + + | Address [...] Team Providers + +------+ + | Care Private Detective Name | Role | Phone | + +------+ + | Saniya Sapp | PCP | + | + +------+ + Encounter Details +--------+ + + + + | Date | Type | Department | Care Team | Description | +--------+ + + + + | 06/21/ | Hospital | Diagnostic Imaging | Deven Dewitt MD | | | 2017 | Encounter | Services [address] | [address] | | | | | [facility] | [place], [place] | | | | | Road [place], [place] | [address] | | | | | [address] | [phone] | | | | | | | [...]
--- OUTSIDE RECORDS SUMMARY | ~2018-08-28 | XMS | Encounter Summary ---
Demographics + + + | Address | [address] | | | [place] [address] | + + + | Home Phone | | + + + | Preferred Language | Unknown | + + + | Marital Status | | + + + | Anabaptist Affiliation | SPI | + + + | Race | White | + + + | Ethnic Group | Not or | + + + Author + + + | Author | [facility] | + + + | Organization | [facility] | + + + | Address | [...] Team Providers + +------+ + | Care Dynamite Packing Machine Operator Name | Role | Phone | [...] | | | | | | | [place], [place] | | | | | | | [address] | | | | | | | Phone: | | | | | | | [phone] | | | | | | | Fax: | | | | | | | [phone] | + +--------+ + + + + Encounter Details +--------+ + + + + | Date | Type | Department | Care Team | Description | +--------+ + + + + | 06/21/ | Procedure | University | Deven Dewitt MD | Obstetric US Scan | | 2018 | | Fertility | [address] | | | | | Consultants at [facility] | [facility] [place] | | | | | [address] | [address] | | | | | Mailcode: CH10F | [phone] | | | | | [facility] | | | | | | and , | | | | | | Floor [place], [place] | | | | | | [address] | | | | | | [phone] | | | +--------+ + + + [...] present 2.6cm 7w4d Yolk Sac: present 4.9mm Difficult Run Rump Length = 12mm, gestational age: Heart Beat: 156 Baby B Gestational Sac: present 2.6cm 7w5d Yolk Sac: present 5.4mm Difficult Run Rump Length = 13mm, gestational age: Heart [...] | + +--------+ + + + | [facility] | Routin | 06/21/2018 | | Results for this | | | e | 7:17 AM | examination or test, | procedure are in the | | | | PDT | | results section. | | | | | unconfirmed | | + +--------+ + + + in this encounter Results [facility]TR[facility] (06/21/2018 7:17 [...]
--- OUTSIDE RECORDS SUMMARY | ~2018-08-28 | XMS | Encounter Summary ---
Demographics + + + | Address | [address] | | | [place] [address] | + + + | Home Phone | | + + + | Preferred Language | Unknown | + + + | Marital Status | | + + + | Hoahaoism Affiliation | SPI | + + + [...] Team Providers + +------+ + | Care Vulcanizer Operator Name | Role | Phone | + +------+ + | Saniya Sapp | PCP | + | + +------+ + Encounter Details +--------+ + + + + | Date | Type | Department | Care Team | Description | +--------+ + + + + | 07/31/ | Pharmacy | [facility] | | | | 2017 | Visit | & Healing Pharmacy | | | | | | [address] | | | | | | [place], [place] | | | | | | [address] | | | | | | [phone] | | | +--------+ + + + [...]
--- OUTSIDE RECORDS SUMMARY | ~2018-08-28 | XMS | Encounter Summary ---
Demographics + + + | Address | [address] | | | [place] [address] | + + + | Home Phone | | + + + | Preferred Language | Unknown | + + + | Marital Status | | + + + | Mandaen Affiliation | SPI | + + + | Race | White | + + + | Ethnic Group | Not or | + + + Author + + + | Author | [facility] | + + + | Organization | [facility] | + + + | Address [...] Team Providers + +------+ + | Care Cut Press Operator Name | Role | Phone | + +------+ + | Saniya Sapp | PCP | + | + +------+ + Encounter Details +--------+ + + + + | Date | Type | Department | Care Team | Description | +--------+ + + + + | 06/14/ | Hospital | Diagnostic Imaging | Yocasta Jonas MD | | | 2018 | Encounter | Services [address] | [address] | | | | | [facility] | [place], [place] | | | | | Road [place], [place] | [address] | | | | | [address] | [phone] | | | | | | | [...] +---------+ + + | | Call with day | 1 | 1 | 04/09/20 [...] | | | 22 gauge x 1 1/2" | progesterone. | | | 18 | [...] 18 | | | 18 x 1 1/2" syringe | | | | | | [...]
--- OUTSIDE RECORDS SUMMARY | ~2018-08-28 | XMS | Encounter Summary ---
Demographics + + + | Address | [address] | | | [place] [address] | + + + | Home Phone | | + + + | Preferred Language | Unknown | + + + | Marital Status | | + + + | Christianity Affiliation | SPI | + + + | Race | White | + + + | Ethnic Group | Not or | + + + Author + + + | Author | [facility] | + + + | Organization | [facility] | + + + | [...] Team Providers + +------+ + | Care Network Strategist Name | Role | Phone | + +------+ + | Saniya Sapp | PCP | + | + +------+ + Encounter Details +--------+ + + + + | Date | Type | Department | Care Team | Description | +--------+ + + + + | 06/21/ | Pharmacy | [facility] | | | | 2017 | Visit | & Healing Pharmacy | | | | | | [address] | | | | | | [place], [place] | | | | | | [address] | | | | | | [phone] | | | +--------+ + + + [...]
--- OUTSIDE RECORDS SUMMARY | ~2018-08-28 | XMS | Encounter Summary ---
Demographics + + + | Address | [address] | | | [place] [address] | + + + | Home Phone | | + + + | Preferred Language | Unknown | + + + | Marital Status | | + + + | Yazidism Affiliation | SPI | + + + | Race | White | + + + | Ethnic Group | Not or | + + + Author + + + | Author | [facility] | + + + | Organization | [facility] | + + + | [...] Team Providers + +------+ + | Care Respiratory Care Assistant Name | Role | Phone | + [...] [place] | | | | | [facility] | [facility], | | | | | [place], [place] | [place] [address] | | | | | [address] | [phone] | | | | | | | [...]
--- OUTSIDE RECORDS SUMMARY | ~2018-08-28 | XMS | Encounter Summary ---
Demographics + + + | Address | [address] | | | [place] [address] | + + + | Home Phone [...] + + + | Author | [facility] | + + + | Organization | [facility] | + + + | Address [...] Team Providers + +------+ + | Care Spinning Supervisor Name | Role | Phone | + +------+ + | Saniya Sapp | PCP | + | + +------+ + Encounter Details +--------+ + + + + | Date | Type | Department | Care Team | Description | +--------+ + + + + | 06/29/ | Pharmacy | [facility] | | | | 2017 | Visit | & Healing Pharmacy | | | | | | [address] | | | | | | [place], [place] | | | | | | [address] | | | | | | [phone] | | | +--------+ + + + [...]
--- OUTSIDE RECORDS SUMMARY | ~2018-08-28 | XMS | Encounter Summary ---
Demographics + + + | Address | [address] | | | [place] [address] | + + + | Home Phone | | + + + | Preferred Language | Unknown | + + + | Marital Status | | + + + | Shinto Affiliation | SPI | + + + | Race | White | + + + | Ethnic Group | Not or | + + + Author + + + | Author | [facility] | + + + | Organization | [facility] | + + + | Address [...] Team Providers + +------+ + | Care Cargo Handler Name | Role | Phone | + +------+ + | Saniya Sapp | PCP | + | + +------+ + Encounter Details +--------+ + + + + | Date | Type | Department | Care Team | Description | +--------+ + + + + | 06/21/ | Telephone | [place] | Fariba Wilson MD | | | 2018 | | Fertility | [address] | | | | | Consultants at [facility] | Julee Aggarwal, | | | | | [address] | [place] [address] | | | | | Mailcode: CH10F | [phone] | | | | | [facility] | | | | | | and , | | | | | | Floor [place], [place] | | | | | | [address] | | | | | | [phone] | | | +--------+ + + + [...]
--- OUTSIDE RECORDS SUMMARY | ~2018-08-28 | XMS | Encounter Summary ---
Demographics + + + | Address | [address] | | | [place] [address] | + + + | Home Phone [...] Team Providers + +------+ + | Care Cell Tester Name | Role | Phone | + +------+ + | Saniya Sapp | PCP | + | + +------+ + Encounter Details +--------+ + + + + | Date | Type | Department | Care Team | Description | +--------+ + + + + | 05/29/ | Telephone | [place] | Fariba Wilson MD | | | 2018 | | Fertility | [address] | | | | | Consultants at [facility] | Julee Reza [place], | | | | | [address] | [place] [address] | | | | | Mailcode: CH10F | [phone] | | | | | [facility] | | | | | | and , | | | | | | Floor [place], [place] | | | | | | [address] | | | | | | [phone] | | | +--------+ + + + [...]
--- OUTSIDE RECORDS SUMMARY | ~2018-08-28 | XMS | Encounter Summary ---
Demographics + + + | Address | [address] | | | [place] [address] | + + + | Home Phone | | + + + | Preferred Language | Unknown | + + + | Marital Status | | + + + | Orthodox Affiliation | SPI | + + [...] Team Providers + +------+ + | Care Tangled Yarn Spool Straightener Name | Role | Phone | + +------+ + | Saniya Sapp | PCP | | + +------+ + Encounter Details +--------+ + + + + | Date | Type | Department | Care Team | Description | +--------+ + + + + | 08/01/ | MyCocdyt | [place] | Fariba Wilson MD | RE: Maternal DNA | | 2018 | Encounter | Fertility | [address] | proof | | | | Consultants at [facility] | Julee Reza [place], | | | | | [address] | [place] [address] | | | | | Mailcode: CH10F | [phone] | | | | | [facility] | | | | | | and | | | | | | Floor [place], [place] | | | | | | [address] | | | | | | [phone] | | | +--------+ + + + [...]
--- OUTSIDE RECORDS SUMMARY | ~2018-08-28 | XMS | Encounter Summary ---
Demographics + + + | Address | [address] | | | [place] [address] | + + + | Home Phone [...] Team Providers + +------+ + | Care Stamp Collector Name | Role | Phone | + +------+ + | Saniya Sapp | PCP | + | + +------+ + Encounter Details +--------+ + + + + | Date | Type | Department | Care Team | Description | +--------+ + + + + | 07/16/ | Documentati | [place] | Fariba Wilson MD | | | 2018 | on | Fertility | [address] | | | | | Consultants at [facility] | Julee Reza [place], | | | | | [address] | [place] [address] | | | | | Mailcode: CH10 | [phone] | | | | | [facility] | | | | | | and [place], | | | | | | Floor [place], [place] | | | | | | [address] | | | | | | [phone] | | | +--------+ + + + [...]
--- OUTSIDE RECORDS SUMMARY | ~2018-08-28 | XMS | Encounter Summary ---
Demographics + + + | Address | [address] | | | [place] [address] | + + + | Home Phone | | + + + | Preferred Language | Unknown | + + + | Marital Status | | + + + | Tenriism Affiliation | SPI | + + + [...] Team Providers + +------+ + | Care Store Group Manager Name | Role | Phone | + +------+ + | Saniya SappP | PCP | | + +------+ + Reason for Visit + + + | Reason | Comments | + + + | Prior Authorization | Progesterone in Oil | | Request - Medication | | + + + Encounter Details +--------+ + + + + | Date | Type | Department | Care Team | Description | +--------+ + + + + | 06/18/ | Documentati | Medication | Obi Lozoya, | Prior Authorization | | 2018 | on | Assistance Prgm | Terri Casey [address] | Request - Medication | | | | Pharmacy [address] | [facility] [address] | (Progesterone in | | | | [address] | [place], [place] | Oil) | | | | [place], [place] | [address] | | | | | [address] | [phone] | | | | | [phone] | | | +--------+ + + + [...]
--- OUTSIDE RECORDS SUMMARY | ~2018-08-28 | XMS | Encounter Summary ---
Demographics + + + | Address | [address] | | | [place] [address] | + + + | Home Phone [...] Team Providers + +------+ + | Care Proposal Editor Name | Role | Phone | + [...] | Encounter | Services [address] | [address] | | | | | [facility] | [place], [place] | | | | | Road [place], [place] | [address] | | | | | [address] | [phone] | | | | | | | [...]
--- OUTSIDE RECORDS SUMMARY | ~2018-08-28 | XMS | Encounter Summary ---
Demographics + + + | Address | [address] | | | [place] [address] | + + + | Home Phone | | + + + | Preferred Language | Unknown | + + + | Marital Status | | + + + | Catholic Affiliation | SPI | + + [...] Team Providers + +------+ + | Care Tower Technician Name | Role | Phone | + [...] | | | | | | | [place], [place] | | | | | | | [address] | | | | | | | Phone: | | | | | | | [phone] | | | | | | | Fax: | | | | | | | [phone] | + +--------+ + + + + Encounter Details +--------+ + + + + | Date | Type | Department | Care Team | Description | +--------+ + + + + | 06/14/ | Procedure | University | Yocasta Jonas MD | Obstetric US Scan | | 2018 | | Fertility | [address] | | | | | Consultants at [facility] | [facility] [place] | | | | | [address] | [address] | | | | | Mailcode: CH10F | [phone] | | | | | [facility] | | | | | | and , | | | | | | [place], [place] | | | | | | [address] | | | | | | [phone] | | | +--------+ + + + [...] present 1.57 6w3d Yolk Sac: present 0.38 [place] Rump Length = 0.65, gestational age: 6w4d Heart Beat: 116bpm Twin B Gestational Sac: present 1.76 6w5d Yolk Sac: present 0.47 [place] Rump Length = 0.55, gestational age: 6w2d Heart Beat: 119bpm Left ovary/adnexa: normal Right ovary/adnexa: normal Interpretation: Viable TIUP. Size c/w dates. +FHR x 2. Adnexae WNL bilat. Plan: Continue E+P as per protocol. Rpt OB scan in 1 wk. 2nd scan recommended on Formal U/S at: Barrel Painter: I personally performed all components of this [...] + + + in this encounter Results [facility] (06/14/2018 7:36 AM) + + [...]
--- OUTSIDE RECORDS SUMMARY | ~2018-08-28 | XMS | Encounter Summary ---
Demographics + + + | Address | [address] | | | [place] [address] | + + + | Home Phone [...] Team Providers + +------+ + | Care Decoration Checker Name | Role | Phone | + [...] | Encounter | Services [address] | [address] | | | | | [facility] | [place], [place] | | | | | Road [place], [place] | [address] | | | | | [address] | [phone] | | | | | | | [...]
--- OUTSIDE RECORDS SUMMARY | ~2018-08-28 | XMS | Encounter Summary ---
Demographics + + + | Address | [address] | | | [place] [address] | + + + | Home Phone | | + + + | Preferred Language | Unknown | + + + | Marital Status | | + + + | Rastafarian Affiliation | SPI | + + + [...] Team Providers + +------+ + | Care Awning Installer Name | Role | Phone | + +------+ + | Saniya Sapp | PCP | + | + +------+ + Encounter Details +--------+ + + + + | Date | Type | Department | Care Team | Description | +--------+ + + + + | 06/18/ | Pharmacy | [facility] | | | | 2017 | Visit | & Healing Pharmacy | | | | | | [address] | | | | | | [place], [place] | | | | | | [address] | | | | | | [phone] | | | +--------+ + + + [...]
--- OUTSIDE RECORDS SUMMARY | ~2018-08-28 | XMS | Encounter Summary ---
Demographics + + + | Address | [address] | | | [place] [address] | + + + | Home Phone [...] Team Providers + +------+ + | Care Home Supervisor Name | Role | Phone | [...] [address] | | | | | [facility] | [address] | | | | | Physicians [place] | [place], [place] | | | | | [place], [place] | [address] | | | | | [address] | | | | | | [phone] | | | +--------+ + + + [...]
--- OUTSIDE RECORDS SUMMARY | ~2018-08-28 | XMS | Encounter Summary ---
Demographics + + + | Address | [address] | | | [place] [address] | + + + | Home Phone | | + + + | Preferred Language | Unknown | + + + | Marital Status | | + + + | Bahai Affiliation | SPI | + + + [...] Providers + +------+ + | Care Store Person Name | Role | Phone | + +------+ + | Saniya Sapp | PCP | | + +------+ + Encounter Details +--------+ + + + + | Date | Type | Department | Care Team | Description | +--------+ + + + + | 08/01/ | MyCcodyt | [place] | Fariba Wilson MD | RE: Maternal DNA | | 2018 | Encounter | Fertility | [address] | proof | | | | Consultants at [facility] | Julee Reza [place], | | | | | [address] | [place] [address] | | | | | Mailcode: CH10F | [phone] | | | | | [facility] | | | | | | and | | | | | | Floor [place], [place] | | | | | | [address] | | | | | | [phone] | | | +--------+ + + + [...]
--- OUTSIDE RECORDS SUMMARY | ~2018-08-28 | XMS | Encounter Summary ---
Demographics + + + | Address | [address] | | | [place] [address] | + + + | Home Phone [...] Team Providers + +------+ + | Care Fumigator And Sterilizer Name | Role | Phone | + [...] | | | | | Consultants at [facility] | Julee Reza [place], | | | | | [address] | [place] [address] | | | | | Mailcode: CH10 | [phone] | | | | | [facility] | | | | | | and [place], | | | | | | [place], [place] | | | | | | [address] | | | | | | [phone] | | | +--------+ + + + [...]
--- OUTSIDE RECORDS SUMMARY | ~2018-08-28 | XMS | Encounter Summary ---
Demographics + + + | Address | [address] | | | [place] [address] | + + + | Home Phone [...] + + + | Author | [facility] | + + + | Organization | [facility] | + + + | Address [...] Team Providers + +------+ + | Care Object Oriented Programmer Name | Role | Phone | + [...] | | | | | | | [place], [place] | | | | | | | [address] | | | | | | | Phone: | | | | | | | [phone] | | | | | | | Fax: | | | | | | | [phone] | + +--------+ + + + + [...] [facility] | Julee Reza [place], | | | | | [address] | [place] [address] | | | | | Mailcode: [id number] | [phone] | | | | | [facility] | | | | | | and Healing, | | | | | | [place], [place] | | | | | | [address] | | | | | | [phone] | | | +--------+ + + + [...] age: 8w3d Yolk Sac: present 0.41 cm [place] Rump Length = 2.12 cm, gestational age: 8w5d Heart Beat: 172 bpm twin B: Approach: transvaginal Uterus: normal Gestational Sac: present Yolk Sac: present [place] Rump Length = 2.19 cm, gestational age: [...] Transition to OB care - referred to [facility]. I, Mariely Betancourt, am functioning [...] + +--------+ + + + | [facility] | Routin | 06/29/2018 | | Results for this | | | e | 7:03 AM | examination or test, | procedure are in the | | | | PDT | | results section. | | | | | unconfirmed | | + +--------+ + + + in this encounter Results [facility]TR[facility] (06/29/2018 7:03 AM) + + [...]
--- OUTSIDE RECORDS SUMMARY | ~2018-08-28 | XMS | Encounter Summary ---
Demographics + + + | Address | [address] | | | [place] [address] | + + + | Home Phone [...] Author | [facility] | + + + | Organization | [facility] | + + + | Address | [...] Team Providers + +------+ + | Care Senior Landscape Architect Name | Role | Phone | [...] | | Pharmacy [address] | [facility] [place] | (Progesterone in | | | | [address] | [place], [place] | Oil) | | | | [place], [place] | [address] | | | | | [address] | [phone] | | | | | [phone] | | | +--------+ + + + [...]
--- OUTSIDE RECORDS SUMMARY | ~2018-08-28 | XMS | Encounter Summary ---
Demographics + + + | Address | [address] | | | [place] [address] | + + + | Home Phone | | + + + | Preferred Language | Unknown | + + + | Marital Status | | + + + | Sabianist Affiliation | SPI | + + + [...] Team Providers + +------+ + | Care Anatomy Teacher Name | Role | Phone | [...] + + | 05/28/ | Telephone | [place] | Fariba Wilson MD | Telephone follow-up | | 2018 | | Fertility | [address] | | | | | [facility] at [facility] | Julee Reza [place], | | | | | [address] | [place] [address] | | | | | Mailcode: 10 | [phone] | | | | | [facility] | | | | | | and | | | | | | [place], [place] | | | | | | [address] | | | | | | [phone] | | | +--------+ + + + [...]
--- OUTSIDE RECORDS SUMMARY | ~2018-08-28 | XMS | Encounter Summary ---
Demographics + + + | Address | [address] | | | [place] [address] | + + + | Home Phone [...] Team Providers + +------+ + | Care Outside Sales Inspector Name | Role | Phone | + +------+ + | Saniya Sapp | PCP | + | + +------+ + Encounter Details +--------+ + + + + | Date | Type | Department | Care Team | Description | +--------+ + + + + | 06/21/ | Telephone | [place] | Fariba Wilson MD | | | 2018 | | Fertility | [address] | | | | | Consultants at [facility] | Julee Aggar[place], | | | | | [address] | [place] [address] | | | | | Mailcode: CH10F | [phone] | | | | | [facility] | | | | | | and , | | | | | | Floor [place], [place] | | | | | | [address] | | | | | | [phone] | | | +--------+ + + + [...]
--- OUTSIDE RECORDS SUMMARY | ~2018-08-28 | XMS | Encounter Summary ---
Demographics + + + | Address | [address] | | | [place] [address] | + + + | Home Phone [...] Team Providers + +------+ + | Care Twisting Operator Name | Role | Phone | + +------+ + | Saniya Sapp | PCP | + | + +------+ + Encounter Details +--------+ + + + + | Date | Type | Department | Care Team | Description | +--------+ + + + + | 07/20/ | Pharmacy | [facility] | | | | 2017 | Visit | & [facility]acy | | | | | | [address] | | | | | | [place], [place] | | | | | | [address] | | | | | | [phone] | | | +--------+ + + + [...]
--- OUTSIDE RECORDS SUMMARY | ~2018-08-28 | XMS | Encounter Summary ---
Demographics + + + | Address | [address] | | | [place] [address] | + + + | Home Phone | | + + + | Preferred Language | Unknown | + + + | Marital Status | | + + + | Jain Affiliation | SPI | + + + | Race | White | + + + | Ethnic Group | Not or | + + + Author + + + | Author | [facility] | + + + | Organization | [facility] | + + + | [...] Providers + +------+ + | Care Ruby Developer Name | Role | Phone | + +------+ + | Saniya Sapp | PCP | + | + +------+ + Encounter Details +--------+ + + + + | Date | Type | Department | Care Team | Description | +--------+ + + + + | 07/31/ | Pharmacy | [facility] | | | | 2017 | Visit | & [facility]aling Pharmacy | | | | | | [address] | | | | | | [place], [place] | | | | | | [address] | | | | | | [phone] | | | +--------+ + + + [...]
--- OUTSIDE RECORDS SUMMARY | ~2018-08-28 | XMS | Encounter Summary ---
Demographics + + + | Address | [address] | | | [place] [address] | + + + | Home Phone [...] Providers + +------+ + | Care Galley Stripper Name | Role | Phone | + [...] [place] | | | | | [facility] | [facility], | | | | | [place], [place] | [place] [address] | | | | | [address] | [phone] | | | | | | | [...]
--- OUTSIDE RECORDS SUMMARY | ~2018-08-28 | XMS | Encounter Summary ---
Demographics + + + | Address | [address] | | | [place] [address] | + + + | Home Phone [...] Author + + + | Author | [facility] | + + + | Organization | [facility] | + + + | Address [...] Team Providers + +------+ + | Care Aquatic Instructor Name | Role | Phone | [...] + + | 05/31/ | Telephone | [place] | Fariba Wilson MD | Telephone follow-up | | 2018 | | Fertility | [address] | | | | | [facility] at [facility] | Julee Reza [place], | | | | | [address] | [place] [address] | | | | | Mailcode: 10 | [phone] | | | | | [facility] | | | | | | and | | | | | | [place], [place] | | | | | | [address] | | | | | | [phone] | | | +--------+ + + + [...]
--- OUTSIDE RECORDS SUMMARY | ~2018-08-28 | XMS | Encounter Summary ---
Demographics + + + | Address | [address] | | | [place] [address] | + + + | Home Phone | | + + + | Preferred Language | Unknown | + + + | Marital Status | | + + + | Voodoo Affiliation | SPI | + + + | Race | White | + + + | Ethnic Group | Not or | + + + Author + + + | Author | [facility] | + + + | Organization | [facility] | + + + | [...] Team Providers + +------+ + | Care Skein Bleacher Name | Role | Phone | + +------+ + | Saniya Sapp | PCP | + | + +------+ + Encounter Details +--------+ + + + + | Date | Type | Department | Care Team | Description | +--------+ + + + + | 06/15/ | Pharmacy | [facility] | | | | 2017 | Visit | & [facility]aling Pharmacy | | | | | | [address] | | | | | | [place], [place] | | | | | | [address] | | | | | | [phone] | | | +--------+ + + + [...]
--- OUTSIDE RECORDS SUMMARY | ~2018-08-28 | XMS | Encounter Summary ---
Demographics + + + | Address | [address] | | | [place] [address] | + + + | Home Phone | | + + + | Preferred Language | Unknown | + + + | Marital Status | | + + + | Pentecostal Affiliation | SPI | + + + [...] Team Providers + +------+ + | Care Automobile Detailer Name | Role | Phone | + +------+ + | Saniya Sapp | PCP | + | + +------+ + Encounter Details +--------+ + + + + | Date | Type | Department | Care Team | Description | +--------+ + + + + | 06/20/ | Pharmacy | [facility] | | | | 2017 | Visit | & [facility]aling Pharmacy | | | | | | [address] | | | | | | [place], [place] | | | | | | [address] | | | | | | [phone] | | | +--------+ + + + [...]
--- OUTSIDE RECORDS SUMMARY | ~2018-08-28 | XMS | Encounter Summary ---
Demographics + + + | Address | [address] | | | [place] [address] | + + + | Home Phone [...] Team Providers + +------+ + | Care Athletic Director Name | Role | Phone | + +------+ + | Saniya Sapp | PCP | + | + +------+ + Encounter Details +--------+ + + + + | Date | Type | Department | Care Team | Description | +--------+ + + + + | 06/15/ | Pharmacy | [facility] | | | | 2017 | Visit | & [facility]aling Pharmacy | | | | | | [address] | | | | | | [place], [place] | | | | | | [address] | | | | | | [phone] | | | +--------+ + + + [...]
--- OUTSIDE RECORDS SUMMARY | ~2018-08-28 | XMS | Encounter Summary ---
Demographics + + + | Address | [address] | | | [place] [address] | + + + | Home Phone [...] Team Providers + +------+ + | Care Automatic Seamer Name | Role | Phone | + [...] + + | 05/31/ | Telephone | [place] | Fariba Wilson MD | Telephone follow-up | | 2018 | | Fertility | [address] | | | | | [facility] at [facility] | Julee Reza [place], | | | | | [address] | [place] [address] | | | | | Mailcode: 10 | [phone] | | | | | [facility] | | | | | | and | | | | | | [place], [place] | | | | | | [address] | | | | | | [phone] | | | +--------+ + + + [...]
--- OUTSIDE RECORDS SUMMARY | ~2018-08-28 | XMS | Encounter Summary ---
Demographics + + + | Address | [address] | | | [place] [address] | + + + | Home Phone | | + + + | Preferred Language | Unknown | + + + | Marital Status | | + + + | Druze Affiliation | SPI | + + + [...] Team Providers + +------+ + | Care Highway Maintenance Worker Name | Role | Phone | + +------+ + | Saniya SappP | PCP | | + +------+ + Encounter Details +--------+ + + + + | Date | Type | Department | Care Team | Description | +--------+ + + + + | 06/17/ | MyChart | [place] | Fariba Wilson MD | RE:Progesterone and | | 2018 | Encounter | Fertility | [address] | [place] | | | | [facility] at [facility] | Julee Reza [place], | | | | | [address] | [place] [address] | | | | | Mailcode: CH10F | [phone] | | | | | [facility] | | | | | | and [place], | | | | | | Floor [place], [place] | | | | | | [address] | | | | | | [phone] | | | +--------+ + + + [...]
--- OUTSIDE RECORDS SUMMARY | ~2018-08-28 | XMS | Encounter Summary ---
Demographics + + + | Address | [address] | | | [place] [address] | + + + | Home Phone | | + + + | Preferred Language | Unknown | + + + | Marital Status | | + + + | Protestant Affiliation | SPI | + + + | Race | White | + + + | Ethnic Group | Not or | + + + Author + + + | Author | [facility] | + + + | Organization | [facility] | + + + | [...] Team Providers + +------+ + | Care Cellar Worker Name | Role | Phone | + +------+ + | Saniya Sapp | PCP | + | + +------+ + Encounter Details +--------+ + + + + | Date | Type | Department | Care Team | Description | +--------+ + + + + | 06/21/ | Pharmacy | [facility] | | | | 2017 | Visit | & Healing Pharmacy | | | | | | [address] | | | | | | [place], [place] | | | | | | [address] | | | | | | [phone] | | | +--------+ + + + [...]
--- OUTSIDE RECORDS SUMMARY | ~2018-08-28 | XMS | Encounter Summary ---
Demographics + + + | Address | [address] | | | [place] [address] | + + + | Home Phone | | + + + | Preferred Language | Unknown | + + + | Marital Status | | + + + | Buddhism Affiliation | SPI | + + + [...] Team Providers + +------+ + | Care Foundry Supervisor Name | Role | Phone | + +------+ + | Saniya Sapp | PCP | + | + +------+ + Encounter Details +--------+ + + + + | Date | Type | Department | Care Team | Description | +--------+ + + + + | 06/15/ | Telephone | [place] | Fariba Wilson MD | | | 2018 | | Fertility | [address] | | | | | [facility] at [facility] | Julee [place], | | | | | [address] | [place] [address] | | | | | Mailcode: CH10F | [phone] | | | | | [facility] | | | | | | and , | | | | | | Floor [place], [place] | | | | | | [address] | | | | | | [phone] | | | +--------+ + + + [...]
--- OUTSIDE RECORDS SUMMARY | ~2018-08-28 | XMS | Encounter Summary ---
Demographics + + + | Address | [address] | | | [place] [address] | + + + | Home Phone | | + + + | Preferred Language | Unknown | + + + | Marital Status | | + + + | Cheondoism Affiliation | SPI | + + + [...] Team Providers + +------+ + | Care Hide Sorter Name | Role | Phone | + +------+ + | Saniya Sapp | PCP | + | + +------+ + Encounter Details +--------+ + + + + | Date | Type | Department | Care Team | Description | +--------+ + + + + | 06/22/ | Pharmacy | [facility] | | | | 2017 | Visit | & Healing Pharmacy | | | | | | [address] | | | | | | [place], [place] | | | | | | [address] | | | | | | [phone] | | | +--------+ + + + [...]
[~2018-08-28 18:36] MED LIST: ASPIR-LOW81 MG PO; FOLIC ACID1 MG PO; IRON236 MG PO; PROTONIX40 MG PO; WELLBUTRIN XL150 MG PO
--- OUTSIDE RECORDS SUMMARY | 2018-08-28 18:40 | XMS ---
PreManage Notification: BOO GARRETT Security Screw Machine Operator Single Spindle Events No recent Security Events currently on file CRITERIA MET - [facility] - 3 Facilities in 90 Days - [facility] - 2 Visits in 30 Days CARE PROVIDERS CARE, [facility] Obstetrics \T\ Gynecology 10/03/2016-Current PHONE: [phone] [facility] Current PHONE: [phone] BARTOLO STOKES Primary Care Current PHONE: Unknown RICKEY FINNEGAN Primary Care [facility] PHONE: Unknown [facility] Primary Care 10/03/2016-Current PHONE: [phone] Ilda Vail Primary Care Current PHONE: [phone] Guicho has no Care Guidelines for this patient. EJohann VISIT COUNT (12 MO.) 1 [facility] Tish Sher 2 [facility] TOTAL 5 NOTE: Visits indicate total known visits. ED/UCC VISIT TRACKING (12 MO.) 08/28/2018 18:36 [facility] [place] TYPE: Emergency COMPLAINT: - PROBLEM,17 WEEKS PREG 08/24/2018 11:14 [facility] [place] TYPE: Emergency [...] Other antepartum hemorrhage, first trimester 07/28/2018 07:19 [facility] [place] TYPE: Emergency DIAGNOSES: - Vaginal Bleeding - Abnormal uterine and vaginal bleeding, unspecified - Twin , unspecified number of placenta and unspecified number of amniotic sacs, second trimester - vaginal bleeding/13 weeks 07/15/2018 15:22 [facility] [place] TYPE: Emergency COMPLAINT: - MEDIC STATES BEE STING INPATIENT VISIT TRACKING (12 MO.) No inpatient visits to display in this time frame [email or web address]
== END 2018-08-28 20:00 | disposition home or self-care (01) ==
LOC: ED 18:36
DX: O30.002 Twin pregnancy, unspecified number of placenta and unspecified number of amniotic sacs, second trimester (principal); O26.852 Spotting complicating pregnancy, second trimester; Z3A.17 17 weeks gestation of pregnancy; Z91.030 Bee allergy status; Z88.0 Allergy status to penicillin; Z91.040 Latex allergy status; Z79.899 Other long term (current) drug therapy; Z79.82 Long term (current) use of aspirin
CPT/HCPCS: 99283